=== PATIENT | male | born 1940 | race American Indian/Alaskan Native ===

== ENCOUNTER 2020-10-03 07:26 | Emergency (ER) | payer MEDICARE ==
--- NOTE | 2020-10-03 07:50 | Emergency Department Report ---
ED General Adult HPI - General Chief complaint: Abdominal Pain Stated complaint: ABD PAIN PUI?: No Time Seen by Provider: 10/03/20 07:40 Source: patient, RN notes reviewed Mode of arrival: Wheelchair Limitations: Physical Limitation - History of Present Illness Initial comments: The patient was evaluated in the emergency department for symptoms described in the history of present illness. He/she was evaluated in the context of the global COVID-19 pandemic, which necessitated consideration that the patient might be at risk for infection with the virus that causes COVID-19. Institutional protocols and algorithms that pertain to the evaluation of patients at risk for COVID-19 are in a state of rapid change based on inform ation released by regulatory bodies including the CDC and federal and state organizations. These policies and algorithms were followed during the patient's care in the emergency department. Please note that these policies, procedures and recommendations changed on a rapid basis. The patient is a 79-year-old gentleman. He is not known to myself previously. He just arrived in the [facility] yesterday, from [facility]. He does not have a local primary care doctor. His past medical history includes a distant history of urinary retention, obesity, and he presents to the ER today with a complaint of urinary retention. This started yesterday. He denies headache, neck pain, chest pain, abdominal pain (upper), testicular pain. He has suprapubic lower abdominal pain. He has no lower extremity weakness or numbness. He has no additional injuries or complaints. Urinary retention is constant, does not radiate anywhere, and does not have exacerbating or relieving factors. -: hour(s) Location: abdomen Quality: stabbing Consistency: constant Improves with: none Worsens with: none Associated Symptoms: denies other symptoms - Related Data Allergies Allergy/AdvReac Type Severity Reaction Status Date / Time No Known Allergies Allergy Unverified 10/03/20 07:33 ED Review of Systems ROS: Stated complaint: ABD PAIN Other details as noted in HPI Comment: All other systems reviewed and negative Gastrointestinal: abdominal pain Genitourinary: as per HPI, other (Suprapubic pain, urinary retention) ED Past Medical Hx - Past Medical History Previous Medical History?: Yes Hx Hypertension: Yes Hx Diabetes: Yes - Surgical History Past Surgical History?: Yes Additional Surgical History: spinal cord surgery - Social History Smoking Status: Never Smoker Substance Use Type: None ED Physical Exam - General Limitations: No Limitations General appearance: alert, anxious, in distress, obese - Head Head exam: Present: atraumatic, normocephalic - Eye Eye exam: Present: normal appearance, EOMI. Absent: nystagmus - ENT ENT exam: Present: normal exam, normal orophraynx, mucous membranes moist, normal external ear exam - Neck Neck exam: Present: normal inspection, full ROM. Absent: tenderness, meningismus - Respiratory Respiratory exam: Present: normal lung sounds bilaterally. Absent: respiratory distress, wheezes, rales, rhonchi, stridor, decreased breath sounds - Cardiovascular Cardiovascular Exam: Present: regular rate, normal rhythm, normal heart sounds. Absent: bradycardia, tachycardia, irregular rhythm, systolic murmur, diastolic murmur, rubs, gallop - GI/Abdominal GI/Abdominal exam: Present: soft, normal bowel sounds. Absent: distended, tenderness, guarding, rebound, rigid, pulsatile mass - Rectal Rectal exam: Present: deferred - exam: Present: normal inspection, other (There is no testicular tenderness. There is normal testicular lie bilaterally. The patient is circumcised. Chaperoned by nurse Lore Mayo) External exam: Present: normal external exam - Extremities Exam Extremities exam: Present: normal inspection, full ROM, other (2+ pulses noted in the bilateral upper and lower extremities. There is no palpable cord. negative Homans sign. Muscular compartments are soft. The pelvis is stable.). Absent: pedal edema, calf tenderness - Back Exam Back exam: Present: normal inspection. Absent: tenderness, CVA tenderness (R), CVA tenderness (L), paraspinal tenderness, vertebral tenderness - Neurological Exam Neurological exam: Present: alert, other (No facial droop. Tongue midline. Extraocular movements intact bilaterally. Facial sensation intact to light touch in V1, V2, V3 distribution bilaterally. 5 and a 5 strength in 4 extremities. Sensation intact to light touch in 4 extremities.) - Psychiatric Psychiatric exam: Present: anxious - Skin Skin exam: Present: warm, dry, intact, normal color. Absent: rash ED Course Vital Signs 10/03/20 10/03/20 10/03/20 07:33 08:26 08:35 Temperature 97.5 F L Pulse Rate 72 63 Respiratory 18 20 20 Rate Blood Pressure 157/69 Blood Pressure 132/70 [Right] O2 Sat by Pulse 98 98 96 Oximetry - Reevaluation(s) Reevaluation #1: 10/03/20 09:04 Differential diagnosis, including but not limited to: BPH, prostate cancer, ur inary retention, cystitis, electrolyte derangement, renal insufficiency Assessment and plan: 79-year-old gentleman with urinary retention. He has no other injuries or complaints at this time. He is afebrile with reassuring vital signs with an unremarkable physical examination. Nursing team attempted to place 16 Luxembourger Barajas catheter, unsuccessful. Using typical sterile technique, I attempted placement of a 16 Luxembourger, 14 Luxembourger coud catheter, and was unsuccessful. In addition, we are unsuccessful in attempting a straight catheterization on this patient. Multiple nurses attempted to catheterize this patient, and were unsuccessful. I do not have urology available for ER consultation. Patient voided 50 cc, however, bladder scanner showed 463 cc. Patient requires urologic consultation for placement of a Barajas catheter. Laboratory studies ordered. I have counseled patient regarding need for transfer for definitive care. He is amenable to this plan of care. He is hemodynamically stable, protecting his airway, and medically suitable for transportation. Contacted [facility] transfer center, discussed care/history/physical with Dr. Perez, at [facility], he requests call back once laboratory studies have resulted. We do not suspect Covid at this time. 10/03/20 10:24 Laboratory studies reviewed and appreciated. We discussed with the aforementioned neurologist. He will communicate to his colleague, Dr. Houser. Patient will be transferred ER to ER, to [facility], accepting physician is Dr. Longo ED Medical Decision Making - Lab Data Result diagrams: 10/03/20 08:35 10/03/20 08:35 Vital Signs 10/03/20 10/03/20 10/03/20 07:33 08:26 08:35 Temperature 97.5 F L Pulse Rate 72 63 Respiratory 18 20 20 Rate Blood Pressure 157/69 Blood Pressure 132/70 [Right] O2 Sat by Pulse 98 98 96 Oximetry Lab Results 10/03/20 Range/Units 08:35 WBC 4.7 (4.5-11.0) K/mm3 RBC 6.18 H (3.65-5.03) M/mm3 Hgb 17.6 H (11.8-15.2) gm/dl Hct 53.2 H (35.5-45.6) % MCV 86 (84-94) fl MCH 29 (28-32) pg MCHC 33 (32-34) % RDW 15.0 (13.2-15.2) % Plt Count 75 L (140-440) K/mm3 Lab Results 10/03/20 10/03/20 10/03/20 Range/Units 08:35 08:35 08:59 WBC 4.7 (4.5-11.0) K/mm3 RBC 6.18 H (3.65-5.03) M/mm3 Hgb 17.6 H (11.8-15.2) gm/dl Hct 53.2 H (35.5-45.6) % MCV 86 (84-94) fl MCH 29 (28-32) pg MCHC 33 (32-34) % RDW 15.0 (13.2-15.2) % Plt Count 75 L (140-440) K/mm3 Sodium 142 (137-145) mmol/L Potassium 3.5 L (3.6-5.0) mmol/L Chloride 106.7 (98-107) mmol/L Carbon Dioxide 24 (22-30) mmol/L Anion Gap 15 mmol/L BUN 18 (9-20) mg/dL Creatinine 0.9 (0.8-1.3) mg/dL Estimated GFR > 60 ml/min BUN/Creatinine Ratio 20 % Glucose 187 H (75-100) mg/dL Calcium 10.1 (8.4-10.2) mg/dL Magnesium 2.20 (1.7-2.3) mg/dL Total Creatine Kinase 264 H (55-170) units/L Urine Bilirubin Neg (Negative) Urine RBC (Auto) 23.0 (0.0-6.0) /HPF U Epithel Cells (Auto) < 1.0 (0-13.0) /HPF Critical care attestation.: If time is entered above; I have spent that time in minutes in the direct care of this critically ill patient, excluding procedure time. ED Disposition Clinical Impression: Urinary retention Disposition: DC/TX-02 SHRT-TRM GEN HOSP IP Is pt being admited?: No Does the pt Need Aspirin: No Condition: Good Referrals: MYRON SON MD [Other] - 3-5 Days
[2020-10-03] MEDS ORDERED: fentaNYL 100 MCG/2 ML INJ ONE (08:18)
[2020-10-03] MEDS ORDERED: fentaNYL 100 MCG/2 ML INJ IV ONE (08:38)
[2020-10-03 08:52] LABS: Hematocrit 53.2 % (35.5-45.6); Hemoglobin 17.6 gm/dl (11.8-15.2); Mean Corpuscular HGB Conc 33 % (32-34); Mean Corpuscular Volume 86 fl (84-94); Red Blood Count 6.18 M/mm3 (3.65-5.03)
[2020-10-03 08:55] LABS: Platelet Count 75 K/mm3 (140-440)
[2020-10-03 09:18] LABS: BUN/Creatinine Ratio 20; Blood Urea Nitrogen 18 mg/dL (9-20); Calcium 10.1 mg/dL (8.4-10.2); Hemolysis Index 5
[2020-10-03 10:07] LABS: Bilirubin,Urine NEG (Negative); Blood,Urine MOD (Negative); Color,Urine Yellow (Yellow); Mucus,Urine FEW /HPF; Urobilinogen,Urine < 2.0 mg/dL (<2.0)
[2020-10-03 10:13] LABS: WBC,Urine > 182.0 /HPF (0.0-6.0)
[2020-10-03 10:54] VITALS: BP 160/71
== END 2020-10-03 11:22 | disposition short-term general hospital (02) ==
LOC: ED 07:26
DX: R33.9 Retention of urine, unspecified (principal); R10.30 Lower abdominal pain, unspecified; I10 Essential (primary) hypertension; E11.9 Type 2 diabetes mellitus without complications; Z98.890 Other specified postprocedural states
CPT/HCPCS: 36415; 80048; 81001; 82550; 83735; 85027; 87086; 96374; 99285; J3010

== ENCOUNTER 2020-11-10 00:38 | Inpatient (IN) | payer MEDICARE ==
[2020-11-10] MEDS ORDERED: ATROPINE 0.1% (1 MG/10 ML) CARDIAC SYRINGE ONE ×2 (00:46→05:28)
--- NOTE | 2020-11-10 00:49 | Emergency Department Report ---
ED Shortness of Breath HPI - General Chief Complaint: Dyspnea/Respdistress Stated Complaint: TRISTAN Time Seen by Provider: 11/10/20 00:38 Source: patient, EMS Mode of arrival: Stretcher Limitations: No Limitations - History of Present Illness Initial Comments: Patient is a 79-year-old male who presents emergency room complaints of dyspnea on exertion and shortness of breath. Patient states his shortness of breath exertion started 3 days ago. Patient states shortness of breath and pain exertion only when he is walking. Patient states his job is better with rest and worse with exertion. Patient denies chest pain. Patient denies fever or chills. Patient denies cough. Patient brought in by EMS. EMS did an EKG prior to arrival and it shows a thi rd-degree AV block with complete disassociation. Patient is not hypoxic. Patient not hypotensive. Patient denied any other symptoms. Patient denies any pain. Patient denies recent travel. Patient denies recent international travel. Patient denies exposure to the novel coronavirus. Patient denies sick contacts. Patient denies fever and chills. Patient denies cough. Patient denies diarrh ea. Patient denies coming in contact with anybody with symptoms of the novel coronavirus. MD Complaint: shortness of breath -: Sudden Severity: moderate Consistency: intermittent Improves With: rest Worsens With: exertion Associated Symptoms: denies other symptoms Treatments Prior to Arrival: oxygen - Related Data Home Oxygen Therapy: No Home Medications Medication Instructions Recorded Confirmed Last Taken Cyanocobalamin (Vitamin B-12) 5,000 mcg PO QDAY 11/10/20 11/10/20 Unknown [Vitamin B12] Docusate Sodium [Docusil] 100 mg PO BID 11/10/20 11/10/20 Unknown HYDROcodone/APAP 5-325 [[place] 1 each PO QDAY 11/10/20 11/10/20 Unknown 5/325] Losartan [Cozaar] 25 mg PO QDAY 11/10/20 11/10/20 Unknown Lovastatin [Altoprev] 20 mg PO QHS 11/10/20 11/10/20 Unknown Meloxicam [Mobic] 15 mg PO QDAY 11/10/20 11/10/20 Unknown Omeprazole 20 mg PO QDAY 11/10/20 11/10/20 Unknown Pioglitazone [Actos] 15 mg PO QDAY 11/10/20 11/10/20 Unknown Tamsulosin [Flomax] 0.4 mg PO QDAY 11/10/20 11/10/20 Unknown amLODIPine [Norvasc] 10 mg PO DAILY 11/10/20 11/10/20 Unknown cefUROXime [Ceftin] 500 mg PO BID 11/10/20 11/10/20 Unknown glipiZIDE [Glucotrol] 10 mg PO QDAY 11/10/20 11/10/20 Unknown metFORMIN [Glucophage] 500 mg PO BID 11/10/20 11/10/20 Unknown Allergies Allergy/AdvReac Type Severity Reaction Status Date / Time No Known Allergies Allergy Verified 11/10/20 01:27 ED Review of Systems ROS: Stated complaint: TRISTAN Other details as noted in HPI Constitutional: denies: chills, fever Eyes: denies: eye pain, eye discharge, vision change ENT: denies: ear pain, throat pain Respiratory: shortness of breath, SOB with exertion. denies: cough, wheezing Cardiovascular: dyspnea on exertion. denies: chest pain, palpitations Endocrine: no symptoms reported Gastrointestinal: denies: abdominal pain, nausea, diarrhea Genitourinary: denies: urgency, dysuria Musculoskeletal: denies: back pain, joint swelling, arthralgia Skin: denies: rash, lesions Neurological: denies: headache, weakness, paresthesias Psychiatric: denies: anxiety, depression Hematological/Lymphatic: denies: easy bleeding, easy bruising ED Past Medical Hx - Past Medical History Previous Medical History?: Yes Hx Hypertension: Yes Hx Diabetes: Yes Additional medical history: Urinary Retention, Enlarged Prostate - Surgical History Past Surgical History?: Yes Additional Surgical History: spinal cord surgery - Family History Family history: no significant - Social History Smoking Status: Never Smoker Substance Use Type: None - Medications Home Medications: Home Medications Medication Instructions Recorded Confirmed Last Taken Type Cyanocobalamin (Vitamin B-12) 5,000 mcg PO QDAY 11/10/20 11/10/20 Unknown History [Vitamin B12] Docusate Sodium [Docusil] 100 mg PO BID 11/10/20 11/10/20 Unknown History HYDROcodone/APAP 5-325 [[place] 1 each PO QDAY 11/10/20 11/10/20 Unknown History 5/325] Losartan [Cozaar] 25 mg PO QDAY 11/10/20 11/10/20 Unknown History Lovastatin [Altoprev] 20 mg PO QHS 11/10/20 11/10/20 Unknown History Meloxicam [Mobic] 15 mg PO QDAY 11/10/20 11/10/20 Unknown History Omeprazole 20 mg PO QDAY 11/10/20 11/10/20 Unknown History Pioglitazone [Actos] 15 mg PO QDAY 11/10/20 11/10/20 Unknown History Tamsulosin [Flomax] 0.4 mg PO QDAY 11/10/20 11/10/20 Unknown History amLODIPine [Norvasc] 10 mg PO DAILY 11/10/20 11/10/20 Unknown History cefUROXime [Ceftin] 500 mg PO BID 11/10/20 11/10/20 Unknown History glipiZIDE [Glucotrol] 10 mg PO QDAY 11/10/20 11/10/20 Unknown History metFORMIN [Glucophage] 500 mg PO BID 11/10/20 11/10/20 Unknown History ED Physical Exam - General Limitations: No Limitations General appearance: alert, in no apparent distress - Head Head exam: Present: atraumatic, normocephalic - Eye Eye exam: Present: normal appearance - ENT ENT exam: Present: mucous membranes moist - Neck Neck exam: Present: normal inspection - Respiratory Respiratory exam: Present: normal lung sounds bilaterally. Absent: respiratory distress - Cardiovascular Cardiovascular Exam: Present: regular rate, normal rhythm. Absent: systolic murmur, diastolic murmur, rubs, gallop - GI/Abdominal GI/Abdominal exam: Present: soft, normal bowel sounds - Rectal Rectal exam: Present: deferred - Extremities Exam Extremities exam: Present: normal inspection - Back Exam Back exam: Present: normal inspection - Neurological Exam Neurological exam: Present: alert, oriented X3 - Psychiatric Psychiatric exam: Present: normal affect, normal mood - Skin Skin exam: Present: warm, dry, intact, normal color. Absent: rash ED Course Vital Signs 11/10/20 11/10/20 11/10/20 00:40 00:42 00:46 Temperature Pulse Rate 32 L 34 L 35 L Respiratory 16 14 13 Rate Blood Pressure 209/70 Blood Pressure 209/70 [Right] O2 Sat by Pulse 99 100 98 Oximetry 11/10/20 11/10/20 11/10/20 00:49 00:51 00:52 Temperature 97.8 F Pulse Rate 33 L Respiratory 17 Rate Blood Pressure Blood Pressure [Right] O2 Sat by Pulse 3 L Oximetry 11/10/20 11/10/20 11/10/20 01:00 01:17 01:31 Temperature Pulse Rate 34 L 33 L 33 L Respiratory 14 17 17 Rate Blood Pressure 211/57 213/63 174/64 Blood Pressure [Right] O2 Sat by Pulse 100 100 100 Oximetry 11/10/20 11/10/20 11/10/20 01:45 02:01 02:15 Temperature Pulse Rate 32 L 32 L 31 L Respiratory 16 12 13 Rate Blood Pressure 174/64 178/62 178/62 Blood Pressure [Right] O2 Sat by Pulse 100 Oximetry 11/10/20 02:31 Temperature Pulse Rate 29 L Respiratory 18 Rate Blood Pressure 180/63 Blood Pressure [Right] O2 Sat by Pulse 100 Oximetry - Reevaluation(s) Reevaluation #1: We attempted the patient placed on a pacer and it was too uncomfortable and did not capture well. Patient was then given atropine and no response. I will discussed this with cardiology. 11/10/20 00:50 Reevaluation #2: I discussed all results with patient. I discussed plan of care with patient. Patient agrees with plan of care and admission. Patient to be admitted to the hospitalist service. 11/10/20 01:55 - Consultations Consultation #1: I discussed the case with Dr. Kayden Acosta, cardiology. Recommend that he recommends admission, labs and he will, and place a temporary venous pacer in the morning. 11/10/20 01:01 Consultation #2: Hospitalist consulted for admission. Hospitalist to admit patient. 11/10/20 01:55 ED Medical Decision Making - Lab Data Result diagrams: 11/10/20 01:01 11/10/20 01:01 - EKG Data -: EKG Interpreted by Me EKG shows normal: sinus rhythm, ST-T waves Rate: bradycardia - EKG Data Interpretation: other (Right bundle branch block, widened QRS, complete AV block.) - Radiology Data Radiology results: report reviewed, image reviewed interpreted by me: Chest x-ray: No pneumonia, no pneumothorax, no foreign body, no osseous findings, no acute findings - Medical Decision Making Patient is a 79-year-old male that presents emergency room with complaints of shortness of breath and dyspnea exertion. Patient was found to be severely bradycardic. On initial EKG and on EKG of EMS, the patient was found to have a complete heart block. Early in the ER stay, I discussed the case with cardiology. Cardiology recommendations were received. Prior to discussing the case with cardiology, the patient was given atropine and an external pacer was applied. Atropine did not increase the heart rate. The pacemaker was not tolerable and did not adjust the heart rate at all. Patient had labs which were essentially unremarkable. Patient chest x-ray is negative for acute findings. Patient admitted to the ICU and to the hospitalist service for further evaluation treatment. - Differential Diagnosis Complete AV block, bradycardia, electrolyte imbalance, ACS Critical Care Time: Yes Critical care time in (mins) excluding proc time.: 35 Critical care attestation.: If time is entered above; I have spent that time in minutes in the direct care of this critically ill patient, excluding procedure time. Critical Care Time: 35 MINUTES ED Disposition Clinical Impression: Complete heart block, RICCI (dyspnea on exertion), SOB (shortness of breath), Bradycardia Disposition: 09 OP ADMIT IP TO THIS HOSP Is pt being admited?: Yes Does the pt Need Aspirin: No Condition: Critical Time of Disposition: 02:01
[2020-11-10] MEDS ORDERED: ATROPINE 1 MG/ML VIAL IV ONE (00:53)
--- NOTE | 2020-11-10 01:44 | XRay Report ---
CHEST 1 VIEW INDICATION / CLINICAL INFORMATION: Dyspnea. COMPARISON: None available. FINDINGS: SUPPORT DEVICES: None. HEART / MEDIASTINUM: No significant abnormality. LUNGS / PLEURA: Diffuse bilateral interstitial opacities are present. No pneumothorax. ADDITIONAL FINDINGS: No significant additional findings. IMPRESSION: 1. Diffuse bilateral interstitial pulmonary opacities are present. I would favor bilateral pneumonia, but interstitial pulmonary edema could also have this appearance and clinical correlation is recomme nded. Signer Name: Kassi Sanchez MD Signed: 11/10/2020 1:39 AM Workstation Name: [id number]
[2020-11-10 01:54] LABS: Basophils % (Auto) 0.5 % (0.0-1.8); Eosinophils # (Auto) 0.3 K/mm3 (0.0-0.4); Eosinophils % (Auto) 6.7 % (0.0-4.3); Hematocrit 38.4 % (35.5-45.6); Hemoglobin 12.3 gm/dl (11.8-15.2); Lymphocytes # (Auto) 1.6 K/mm3 (1.2-5.4); Lymphocytes % (Auto) 38.6 % (13.4-35.0); Mean Corpuscular HGB Conc 32 % (32-34); Mean Corpuscular Volume 88 fl (84-94); Monocytes # (Auto) 0.5 K/mm3 (0.0-0.8); Monocytes % (Auto) 10.9 % (0.0-7.3); Platelet Count 114 K/mm3 (140-440); Red Blood Count 4.38 M/mm3 (3.65-5.03); Red Cell Distribution Width 15.9 % (13.2-15.2)
[2020-11-10 01:59] LABS: Creatine Kinase MB 1.7 ng/mL (0.0-4.0)
[2020-11-10 02:00] LABS: Alanine Aminotransferase 59 units/L (7-56); Albumin 3.7 g/dL (3.9-5); BUN/Creatinine Ratio 15; Blood Urea Nitrogen 17 mg/dL (9-20); Calcium 10.1 mg/dL (8.4-10.2); Hemolysis Index 5
[2020-11-10] MEDS ORDERED: hydrALAZINE 20 MG/1 ML INJ IV PRN (02:29)
--- NOTE | 2020-11-10 02:30 | History and Physical Report ---
History of Present Illness Date of examination: 11/10/20 Date of admission: 11/10/20 Chief complaint: shortness of breath History of present illness: Patient is a 79-year-old male who presents emergency room with complaints of dyspnea on exertion and shortness of breath. Patient states his shortness of breath exertion started 3 days ago. Patient states shortness of breath and pain exertion only when he is walking. Patient states his symptom worse with exertion and better with rest. Patient Patient is seen at bedside. Patient is calm, he denies chest pain, nausea and vomiting. patient also denies fever, cough or chill. Discussed plan of care with the patient nurse at bedside. Patient nurse said he gave patient atropine at bedside but did not improve the heart rate. External pacemaker was placed, however patient did not tolerate the procedure in ED Patient is scheduled for pacemaker placement in the morning by automatic embroidery machine tender. Reviewed lab, MAR and vital signs. ED work-up shows WBC 4.2, hemoglobin 12.3, platelets 114, sodium level 145 Potassium level 4.0, serum glucose 147, creatinine 1.21. Reviewed child monitor patient is on complete heart block at rate 20s to 30s Patient is CAlM and not in acute distress even with low heart rate. Chest x-ray done which showed diffuse bilateral pulmonary opacity most likely abdominal bilateral pneumonia/pulmonary edema Past History Past Medical History: diabetes, hypertension, hyperlipidemia Past Surgical History: Other (History of spinal surgery) Social history: no significant social history, lives with family. denies: smoking, alcohol abuse, prescription drug abuse Family history: diabetes (Mother with heart attack), hypertension Medications and Allergies Allergies Allergy/AdvReac Type Severity Reaction Status Date / Time No Known Allergies Allergy Verified 11/10/20 01:27 Home Medications Medication Instructions Recorded Confirmed Last Taken Type Cyanocobalamin (Vitamin B-12) 5,000 mcg PO QDAY 11/10/20 11/10/20 Unknown History [Vitamin B12] Docusate Sodium [Docusil] 100 mg PO BID 11/10/20 11/10/20 Unknown History HYDROcodone/APAP 5-325 [[place] 1 each PO QDAY 11/10/20 11/10/20 Unknown History 5/325] Losartan [Cozaar] 25 mg PO QDAY 11/10/20 11/10/20 Unknown History Lovastatin [Altoprev] 20 mg PO QHS 11/10/20 11/10/20 Unknown History Meloxicam [Mobic] 15 mg PO QDAY 11/10/20 11/10/20 Unknown History Omeprazole 20 mg PO QDAY 11/10/20 11/10/20 Unknown History Pioglitazone [Actos] 15 mg PO QDAY 11/10/20 11/10/20 Unknown History Tamsulosin [Flomax] 0.4 mg PO QDAY 11/10/20 11/10/20 Unknown History amLODIPine [Norvasc] 10 mg PO DAILY 11/10/20 11/10/20 Unknown History cefUROXime [Ceftin] 500 mg PO BID 11/10/20 11/10/20 Unknown History glipiZIDE [Glucotrol] 10 mg PO QDAY 11/10/20 11/10/20 Unknown History metFORMIN [Glucophage] 500 mg PO BID 11/10/20 11/10/20 Unknown History Review of Systems Constitutional: fatigue, weakness Ears, nose, mouth and throat: no epistaxis, no bleeding gums Cardiovascular: lightheadedness, shortness of breath, high blood pressure, decreased exercise tolerance Respiratory: shortness of breath Gastrointestinal: no abdominal pain, no melena Genitourinary Male: no dysuria Rectal: no hemorrhoids Musculoskeletal: muscle weakness Integumentary: no rash, no pruritis Neurological: no head injury Psychiatric: no suicidal ideation, no disorientation Endocrine: no polyuria Hematologic/Lymphatic: no easy bruising Allergic/Immunologic: no urticaria Exam - Constitutional Vitals: Temp Pulse Resp BP Pulse Ox 97.8 F 32 L 12 178/62 100 11/10/20 00:52 11/10/20 02:01 11/10/20 02:01 11/10/20 02:01 11/10/20 02:01 General appearance: Present: mild distress, obese - EENT Eyes: Present: PERRL ENT: hearing intact, clear oral mucosa - Neck Neck: Present: supple, normal ROM - Respiratory Respiratory effort: normal Respiratory: bilateral: CTA - Cardiovascular Heart rate: 30 Heart Sounds: Present: S1 & S2. Absent: rub, click - Extremities Extremities: pulses symmetrical, No edema Peripheral Pulses: within normal limits - Abdominal General gastrointestinal: Present: soft, non-tender, non-distended, normal bowel sounds Male genitourinary: Present: normal - Integumentary Integumentary: Present: clear, warm, dry - Musculoskeletal Musculoskeletal: strength equal bilaterally, generalized weakness - Psychiatric Psychiatric: appropriate mood/affect, intact judgment & insight, cooperative - Neurologic Neurologic: CNII-XII intact, moves all extremities - Allied Health Allied health notes reviewed: nursing HEART Score - HEART Score Troponin: Troponin T < 0.010 ng/mL (0.00-0.029) 11/10/20 01:01 Results - Labs CBC & Chem 7: 11/10/20 01:01 11/10/20 01:01 Labs: Abnormal lab results 11/10/20 11/10/20 Range/Units 01:01 01:01 WBC 4.2 L (4.5-11.0) K/mm3 RDW 15.9 H (13.2-15.2) % Plt Count 114 L (140-440) K/mm3 Lymph % (Auto) 38.6 H (13.4-35.0) % [place]da % (Auto) 10.9 H (0.0-7.3) % Eos % (Auto) 6.7 H (0.0-4.3) % Chloride 108.6 H (98-107) mmol/L Glucose 147 H (75-100) mg/dL AST 50 H (5-40) units/L ALT 59 H (7-56) units/L Albumin 3.7 L (3.9-5) g/dL Assessment and Plan - Patient Problems (1) Bradycardia Current Visit: Yes Status: Acute Plan to address problem: Continue to monitor patient vital signs including heart rate Atropine was given in ED patient still has low heart rate in the 20s to 30s Human Resources Communications Manager consulted pacemaker placement planned for morning Patient is stable not in acute distress (2) Complete heart block Current Visit: Yes Status: Acute Plan to address problem: Patient on case monitor has complete heart block He has shortness of breath only with activity No acute distress at rest Human Resources Communications Manager consulted (3) SOB (shortness of breath) Current Visit: Yes Status: Acute Plan to address problem: Continue oxygen supplement Monitor O2 sat and keep oxygen saturation greater than 90 As needed bronchodilator (4) Essential (primary) hypertension Current Visit: Yes Status: Acute Plan to address problem: Patient has a history of hypertension Monitor blood pressure continue home blood pressure medicine Will Adjust blood pressure medicine if needed ECHO-f/u with result (5) Person under investigation for COVID-19 Current Visit: Yes Status: Acute Plan to address problem: Patient has shortness of breath requiring oxygen Chest x-ray shows bilateral pulmonary opacity likely pneumonia/pulmonary edema We will order Covid test ID consult We will monitor inflammatory markers Ascorbic acid and zinc sulfate. (6) Bilateral pneumonia Current Visit: Yes Status: Acute Plan to address problem: Unknown cause Covid test ordered Blood culture and urinalysis Start azithromycin and Rocephin Check procalcitonin (7) DVT prophylaxis Current Visit: Yes Status: Acute Plan to address problem: Subcutaneous Lovenox post pace maker placement
[2020-11-10] MEDS ORDERED: ALUM-MAG HYDROXIDE-SIMETHICONE 200-200-20MG/5ML ORAL LIQD 30 ML PO PRN (02:45)
[2020-11-10] MEDS ORDERED: ONDANSETRON 4 MG/2 ML INJ IV PRN (02:45)
[2020-11-10] MEDS ORDERED: ACETAMINOPHEN 325 MG TAB PO PRN (02:45)
[2020-11-10] MEDS ORDERED: SENNOSIDES 8.6 MG TAB PO PRN (02:45)
[2020-11-10] MEDS ORDERED: METOCLOPRAMIDE 10 MG/2 ML INJ IV PRN (02:45)
[2020-11-10] MEDS ORDERED: ALBUTEROL 2.5 MG/3 ML NEBU IH PRN (02:45)
[2020-11-10] MEDS ORDERED: MAGNESIUM HYDROXIDE (MOM) ORAL LIQD UDC PO PRN (02:45)
[2020-11-10] MEDS ORDERED: traMADol 50 MG TAB PO PRN ×2 (02:49→09:30)
[2020-11-10] MEDS ORDERED: AZITHROMYCIN 500 MG in SODIUM CHLORIDE 0.9% 250ML 250 ML IV SCH (04:00)
[2020-11-10] MEDS ORDERED: cefTRIAXone/NS 1 GM/50 ML 1 GM/50 ML BAG IV SCH (04:00)
[2020-11-10] MEDS ORDERED: FUROSEMIDE 40 MG/4 ML INJ IV ONE (04:17)
[2020-11-10 05:39] LABS: C-Reactive Protein 0.5 mg/dL (0.00-1.30); Chol/HDL Ratio 4.14 %
[2020-11-10 05:58] LABS: Bilirubin,Urine NEG (Negative); Blood,Urine NEG (Negative); Color,Urine Yellow (Yellow); Mucus,Urine FEW /HPF; Protein,Urine <15 mg/dL mg/dL (Negative); Urobilinogen,Urine < 2.0 mg/dL (<2.0)
[2020-11-10] MEDS ORDERED: SODIUM CHLORIDE 0.9% 500 ML 500 ML ONE (07:37)
[2020-11-10] MEDS ORDERED: HEPARIN/NS 5000 UNIT/500ML 500 ML IR ONE (07:37)
[2020-11-10] MEDS ORDERED: SODIUM CHLORIDE 0.9% 500 ML 500 ML IV SCH (08:00)
[2020-11-10] MEDS ORDERED: VERAPAMIL 5 MG/2 ML INJ ONE (08:15)
[2020-11-10] MEDS ORDERED: HEPARIN/NS 5000 UNIT/500ML 1,000 ML IR ONE (08:27)
[2020-11-10] MEDS: LIDOCAINE (2%) 20 MG/1 ML VIAL 20 ML MDV INFILTRATI ONE ×4 (08:39→09:00)
[2020-11-10] MEDS: MIDAZOLAM 2 MG/2 ML INJ ONE ×3 (08:39→09:03)
[2020-11-10] MEDS: fentaNYL 100 MCG/2 ML INJ ONE ×3 (08:39→09:00)
[2020-11-10] MEDS: HEPARIN 10,000 UNITS/10 ML VIAL ONE ×3 (08:40→09:01)
[2020-11-10] MEDS: NITROGLYCERIN SYRINGE 3 ML ONE ×3 (08:42→09:01)
[2020-11-10] MEDS ORDERED: HYDROcodone/ACETAMINOPHEN 5-325 MG TAB PO PRN (09:30)
--- NOTE | 2020-11-10 09:36 | Consultation ---
History of Present Illness Consult date: 11/10/20 Requesting physician: CANDY HERNANDEZ Consult reason: bradycardia History of present illness: 79-year-old male with obesity hypertension hyperlipidemia diabetes for 3 days been having shortness of breath with exertion EMS arrived showed patient to be in complete heart block. Patient vitals were stable. Unresponsive to atropine. Patient is not on any AV porter blocking agents. Patient denies any chest pain. No syncope. Some lightheadedness. No fever no chills no cough. Patient had temporary pacemaker placed by the right common femoral vein. Left heart cath revealed patent coronaries with mild irregularities with normal LV function. Past History Past Medical History: diabetes, hypertension, hyperlipidemia Past Surgical History: Other (History of spinal surgery) Social history: no significant social history, lives with family. denies: smoking, alcohol abuse, prescription drug abuse Family history: diabetes (Mother with heart attack), hypertension Medications and Allergies Allergies Allergy/AdvReac Type Severity Reaction Status Date / Time No Known Allergies Allergy Verified 11/10/20 01:27 Home Medications Medication Instructions Recorded Confirmed Last Taken Type Cyanocobalamin (Vitamin B-12) 5,000 mcg PO QDAY 11/10/20 11/10/20 Unknown History [Vitamin B12] Docusate Sodium [Docusil] 100 mg PO BID 11/10/20 11/10/20 Unknown History HYDROcodone/APAP 5-325 [[place] 1 each PO QDAY 11/10/20 11/10/20 Unknown History 5/325] Losartan [Cozaar] 25 mg PO QDAY 11/10/20 11/10/20 Unknown History Lovastatin [Altoprev] 20 mg PO QHS 11/10/20 11/10/20 Unknown History Meloxicam [Mobic] 15 mg PO QDAY 11/10/20 11/10/20 Unknown History Omeprazole 20 mg PO QDAY 11/10/20 11/10/20 Unknown History Pioglitazone [Actos] 15 mg PO QDAY 11/10/20 11/10/20 Unknown History Tamsulosin [Flomax] 0.4 mg PO QDAY 11/10/20 11/10/20 Unknown History amLODIPine [Norvasc] 10 mg PO DAILY 11/10/20 11/10/20 Unknown History cefUROXime [Ceftin] 500 mg PO BID 11/10/20 11/10/20 Unknown History glipiZIDE [Glucotrol] 10 mg PO QDAY 11/10/20 11/10/20 Unknown History metFORMIN [Glucophage] 500 mg PO BID 11/10/20 11/10/20 Unknown History Active Meds: Active Medications Acetaminophen (Acetaminophen 325 Mg Tab) 650 mg PO Q6H PRN PRN Reason: Pain MILD(1-3)/Fever >100.5/[place] Hydrocodone Bitart/Acetaminophen (Hydrocodone/Acetaminophen 5-325 Mg Tab) 1 each PO Q4H PRN PRN Reason: Pain, Moderate (4-6) Al Hydrox/Mg Hydrox/Simethicone (Alum-Mag Hydroxide-Simethicone [id number]/5ml Oral Liqd 30 Ml) 30 ml PO Q4H PRN PRN Reason: Indigestion Albuterol (Albuterol 2.5 Mg/3 Ml Nebu) 2.5 mg IH Q3HRT PRN PRN Reason: Shortness Of Breath Amlodipine Besylate (Amlodipine 10 Mg Tab) 10 mg PO DAILY BUFFY Ascorbic Acid (Ascorbic Acid 500 Mg Tab) 500 mg PO BID BUFFY Atorvastatin Calcium (Atorvastatin 20 Mg Tab) 20 mg PO QHS [facility]Y Hydralazine HCl (Hydralazine 20 Mg/1 Ml Inj) 5 mg IV Q4H PRN PRN Reason: Hypertension Azithromycin 500 mg/ Sodium (Chloride) 250 mls @ 250 mls/hr IV Q24HR BUFFY; Protocol Last Admin: 11/10/20 04:15 Dose: 250 mls/hr Documented by: Ceftriaxone Sodium (Rocephin/Ns 1 Gm/50 Ml) 1 gm in 50 mls @ 100 mls/hr IV Q24HR BUFFY; Protocol Last Admin: 11/10/20 04:26 Dose: 100 mls/hr Documented by: Sodium Chloride (Nacl 0.9% 500 Ml) 500 mls @ 50 mls/hr IV DIRECT BUFFY Stop: 11/10/20 17:59 Insulin Human Lispro (Insulin Lispro 100 Unit/Ml Vial 3 Ml) 0 unit SUB-Q ACHS BUFFY; Protocol Losartan Potassium (Losartan 25 Mg Tab) 25 mg PO DAILY BUFFY Magnesium Hydroxide (Magnesium Hydroxide (Mom) Oral Liqd Udc) 30 ml PO Q4H PRN PRN Reason: Constipation Metoclopramide HCl (Metoclopramide 10 Mg/2 Ml Inj) 10 mg IV Q6H PRN PRN Reason: Nausea And Vomiting Ondansetron HCl (Ondansetron 4 Mg/2 Ml Inj) 4 mg IV Q8H PRN PRN Reason: Nausea And Vomiting Pantoprazole Sodium (Pantoprazole 20 Mg Tab) 20 mg PO QDAC [facility] Senna (Sennosides 8.6 Mg Tab) 8.6 mg PO BID PRN PRN Reason: Constipation Sodium Chloride (Sodium Chloride 0.9% 10 Ml Flush Syringe) 10 ml IV BID BUFFY Sodium Chloride (Sodium Chloride 0.9% 10 Ml Flush Syringe) 10 ml IV PRN PRN PRN Reason: LINE FLUSH Tamsulosin HCl (Tamsulosin 0.4 Mg Cap) 0.4 mg PO DAILY BUFFY Tramadol HCl (Tramadol 50 Mg Tab) 50 mg PO Q6H PRN PRN Reason: Pain, Moderate (4-6) Tramadol HCl (Tramadol 50 Mg Tab) 50 mg PO Q4H PRN PRN Reason: Pain, Mild (1-3) Zinc Sulfate (Zinc Sulfate 220 Mg Cap) 220 mg PO QDAY [facility] Review of Systems All systems: negative (hpi) Physical Examination Vital Signs Pulse Resp BP Pulse Ox 32 L 16 209/70 99 11/10/20 00:40 11/10/20 00:40 11/10/20 00:40 11/10/20 00:40 General appearance: no acute distress, well-nourished HEENT: Positive: PERRL, Mucus Membranes Moist Neck: Positive: neck supple, trachea midline Cardiac: Positive: Reg Rate and Rhythm, S1/S2. Negative: Audible Murmur Lungs: Positive: clear to auscultation, Normal Breath Sounds Neuro: Positive: Grossly Intact Abdomen: Positive: Soft, Active Bowel Sounds. Negative: Tender, Distended Male genitourinary: Positive: normal Skin: Positive: Clear Incision: Cardiac Cath Site Musculoskeletal: No Pain, Normal Range of Motion Extremities: Present: normal. Absent: edema Results 11/10/20 01:01 11/10/20 03:33 Cardiac Enzymes 11/10/20 11/10/20 Range/Units 01:01 03:33 AST 50 H (5-40) units/L Lactate Dehydrogenase 219 H (91-180) units/L CK-MB (CK-2) 1.7 (0.0-4.0) ng/mL Lipids 11/10/20 Range/Units 03:33 Triglycerides 70 (2-149) mg/dL Cholesterol 141 (50-199) mg/dL HDL Cholesterol 34 L (40-59) mg/dL Cholesterol/HDL Ratio 4.14 % CBC 11/10/20 Range/Units 01:01 WBC 4.2 L (4.5-11.0) K/mm3 RBC 4.38 (3.65-5.03) M/mm3 Hgb 12.3 (11.8-15.2) gm/dl Hct 38.4 (35.5-45.6) % Plt Count 114 L (140-440) K/mm3 Lymph # (Auto) 1.6 (1.2-5.4) K/mm3 [place] # (Auto) 0.5 (0.0-0.8) K/mm3 Eos # (Auto) 0.3 (0.0-0.4) K/mm3 Baso # (Auto) 0.0 (0.0-0.1) K/mm3 Comprehensive Metabolic Panel 11/10/20 11/10/20 Range/Units 01:01 03:33 Sodium 145 (137-145) mmol/L Potassium 4.0 (3.6-5.0) mmol/L Chloride 108.6 H (98-107) mmol/L Carbon Dioxide 26 (22-30) mmol/L BUN 17 (9-20) mg/dL Creatinine 1.1 (0.8-1.3) mg/dL Glucose 147 H 132 H (75-100) mg/dL Calcium 10.1 (8.4-10.2) mg/dL AST 50 H (5-40) units/L ALT 59 H (7-56) units/L Alkaline Phosphatase 47 (35-129) units/L Total Protein 6.8 (6.3-8.2) g/dL Albumin 3.7 L (3.9-5) g/dL - Imaging and Cardiology Cardiac cath: report reviewed (Left main patent LAD patent mildly Misbah circumflex patent mild Misbah's RCA moderate severe tortuosity patent mild Misbah is normal LV function) EKG interpretations - Telemetry EKG Rhythm: 3rd Degree HB (Complete heart block) Assessment and Plan 79-year-old patient with diastolic function complete heart block feeling better with a temporary pacemaker wire with patent coronaries normal LV function follow with echocardiogram blood pressure control hold Metformin. Repeat chest x-ray denies any fever or chills. Follow labs. Scheduled for permanent pacemaker on Wednesday - Patient Problems (1) Hypertension Current Visit: Yes Status: Chronic Qualifiers: Hypertension type: essential hypertension Qualified Code(s): I10 - Essential (primary) hypertension (2) Hyperlipidemia Current Visit: Yes Status: Chronic Qualifiers: Hyperlipidemia type: mixed hyperlipidemia Qualified Code(s): E78.2 - Mixed hyperlipidemia (3) Diabetes mellitus Current Visit: Yes Status: Chronic Qualifiers: Diabetes mellitus type: type 2 Diabetes mellitus penitentiary insulin use: with penitentiary use Diabetes mellitus complication status: without complication Qualified Code(s): E11.9 - Type 2 diabetes mellitus without complications; Z79.4 - manager terminal (current) use of insulin (4) 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
--- NOTE | 2020-11-10 10:03 | Cardiac Catherization Report ---
LEFT HEART CATHETERIZATION This is a 79-year-old male here for a left heart catheterization and temporary pacemaker done on 11/10/2020. CLINICAL INFORMATION: This is a 79-year-old -[place] gentleman with obesity, hypertension, hyperlipidemia, diabetes has been having shortness of breath for 3 days, found on EKG to be in complete heart block. Procedure was done with moderate sedation started at 9:01, finished at 9:21, which is 20 minutes of moderate sedation. PROCEDURE: Temporary pacemaker wire was done via the right common femoral vein, sterile technique, local anesthesia, 6-Croatian sheath inserted. The pacemaker wire was placed in the right ventricle. The patient achieved capture with settings rate of 60, output of 1, sensitivity 1. Next, a left heart catheterization done via the right radial artery, sterile technique, local anesthesia, 6-Croatian radial sheath inserted. There was moderate tortuosity in the subclavian, so left system engaged with JL3.5 catheter. Left main is a large caliber vessel, patent, bifurcates into medium caliber LAD is patent. There is moderate tortuosity. Diagonal 1 medium caliber, patent with mild luminal irregularities. Circumflex medium caliber vessel, patent with mild luminal irregularities with moderate tortuosity. OM1 and OM2 are medium caliber vessel, patent with mild luminal irregularities. RCA was engaged to a 3RDC. Subselectively it is a large dominant vessel with [id number] tortuosity, patent with mild luminal irregularities. PDA, PLV are patent. LV gram done in NIGERIAN and CARDENAS view shows normal LV function, EF 55-60%. LV was 140. LVEDP 14 mm. Aortic is 146/70. No gradient across the aortic valve on pullback. 5-Croatian catheters all taken over guidewire, 6-Croatian radial sheath was discontinued. Radial band applied. No hematoma, no bleeding. SUMMARY: 1. Left main patent, LAD patent, circumflex patent, RCA patent with [id number] tortuosity with mild luminal irregularities. Diagonal 1 medium caliber was patent. OM1 and OM2 medium caliber patent, normal LV function. 2. Temporary pacemaker wire placed in right common femoral vein. Settings of rate 60, sensitivity 1 and output of 1. The patient will be placed back to post-cath care and the patient will be arranged for a permanent pacemaker. JOB# [id number] BELEN/CANDELARIA
--- NOTE | 2020-11-10 13:55 | Consultation ---
History of Present Illness - Reason for Consult Consult date: 11/10/20 COVID PUI Requesting physician: MONICA LLAMAS - History of Present Illness The patient is a 79-year-old male with hypertension, diabetes, hyperlipidemia admitted to the hospital with worsening shortness of breath that began 3 days prior to coming in. Upon evaluation, normal WBC, chest x-ray showed bilateral pulmonary opacities. Patient has been made a COVID-19 PUI. He is otherwise afebrile. Infectious diseases was consulted for additional evaluation. D-dimer 01/07/2009, creatinine 1.1. UA showed pyuria. COVID-19 PCR is pending. Review of Systems: reviewed in the chart, unable to obtain, minimize risk of transmission Past History Past Medical History: diabetes, hypertension, hyperlipidemia Past Surgical History: Other (History of spinal surgery) Social history: no significant social history, lives with family. denies: smoking, alcohol abuse, prescription drug abuse Family history: diabetes (Mother with heart attack), hypertension Medications and Allergies Allergies Allergy/AdvReac Type Severity Reaction Status Date / Time No Known Allergies Allergy Verified 11/10/20 01:27 Home Medications Medication Instructions Recorded Confirmed Last Taken Type Cyanocobalamin (Vitamin B-12) 5,000 mcg PO QDAY 11/10/20 11/10/20 Unknown History [Vitamin B12] Docusate Sodium [Docusil] 100 mg PO BID 11/10/20 11/10/20 Unknown History HYDROcodone/APAP 5-325 [[place] 1 each PO QDAY 11/10/20 11/10/20 Unknown History 5/325] Losartan [Cozaar] 25 mg PO QDAY 11/10/20 11/10/20 Unknown History Lovastatin [Altoprev] 20 mg PO QHS 11/10/20 11/10/20 Unknown History Meloxicam [Mobic] 15 mg PO QDAY 11/10/20 11/10/20 Unknown History Omeprazole 20 mg PO QDAY 11/10/20 11/10/20 Unknown History Pioglitazone [Actos] 15 mg PO QDAY 11/10/20 11/10/20 Unknown History Tamsulosin [Flomax] 0.4 mg PO QDAY 11/10/20 11/10/20 Unknown History amLODIPine [Norvasc] 10 mg PO DAILY 11/10/20 11/10/20 Unknown History cefUROXime [Ceftin] 500 mg PO BID 11/10/20 11/10/20 Unknown History glipiZIDE [Glucotrol] 10 mg PO QDAY 11/10/20 11/10/20 Unknown History metFORMIN [Glucophage] 500 mg PO BID 11/10/20 11/10/20 Unknown History Active Meds: Active Medications Acetaminophen (Acetaminophen 325 Mg Tab) 650 mg PO Q6H PRN PRN Reason: Pain MILD(1-3)/Fever >100.5/[place] Hydrocodone Bitart/Acetaminophen (Hydrocodone/Acetaminophen 5-325 Mg Tab) 1 each PO Q4H PRN PRN Reason: Pain, Moderate (4-6) Al Hydrox/Mg Hydrox/Simethicone (Alum-Mag Hydroxide-Simethicone [id number]/5ml Oral Liqd 30 Ml) 30 ml PO Q4H PRN PRN Reason: Indigestion Albuterol (Albuterol 2.5 Mg/3 Ml Nebu) 2.5 mg IH Q3HRT PRN PRN Reason: Shortness Of Breath Amlodipine Besylate (Amlodipine 10 Mg Tab) 10 mg PO DAILY [facility] Ascorbic Acid (Ascorbic Acid 500 Mg Tab) 500 mg PO BID [facility] Aspirin (Aspirin 325 Mg Tab) 325 mg PO QDAY [facility] Atorvastatin Calcium (Atorvastatin 20 Mg Tab) 20 mg PO QHS [facility] Hydralazine HCl (Hydralazine 20 Mg/1 Ml Inj) 5 mg IV Q4H PRN PRN Reason: Hypertension Azithromycin 500 mg/ Sodium (Chloride) 250 mls @ 250 mls/hr IV Q24HR [facility]; Protocol Last Admin: 11/10/20 04:15 Dose: 250 mls/hr Documented by: Ceftriaxone Sodium (Rocephin/Ns 1 Gm/50 Ml) 1 gm in 50 mls @ 100 mls/hr IV Q24HR [facility]; Protocol Last Admin: 11/10/20 04:26 Dose: 100 mls/hr Documented by: Sodium Chloride (Nacl 0.9% 500 Ml) 500 mls @ 50 mls/hr IV DIRECT [facility] Stop: 11/10/20 17:59 Insulin Human Lispro (Insulin Lispro 100 Unit/Ml Vial 3 Ml) 0 unit SUB-Q ACHS [facility]; Protocol Losartan Potassium (Losartan 25 Mg Tab) 25 mg PO DAILY [facility] Magnesium Hydroxide (Magnesium Hydroxide (Mom) Oral Liqd Udc) 30 ml PO Q4H PRN PRN Reason: Constipation Metoclopramide HCl (Metoclopramide 10 Mg/2 Ml Inj) 10 mg IV Q6H PRN PRN Reason: Nausea And Vomiting Ondansetron HCl (Ondansetron 4 Mg/2 Ml Inj) 4 mg IV Q8H PRN PRN Reason: Nausea And Vomiting Pantoprazole Sodium (Pantoprazole 20 Mg Tab) 20 mg PO QDAC [facility] Senna (Sennosides 8.6 Mg Tab) 8.6 mg PO BID PRN PRN Reason: Constipation Sodium Chloride (Sodium Chloride 0.9% 10 Ml Flush Syringe) 10 ml IV BID BU[facility] Sodium Chloride (Sodium Chloride 0.9% 10 Ml Flush Syringe) 10 ml IV PRN PRN PRN Reason: LINE FLUSH Tamsulosin HCl (Tamsulosin 0.4 Mg Cap) 0.4 mg PO DAILY [facility] Tramadol HCl (Tramadol 50 Mg Tab) 50 mg PO Q4H PRN PRN Reason: Pain, Mild (1-3) Zinc Sulfate (Zinc Sulfate 220 Mg Cap) 220 mg PO QDAY [facility] Physical Examination - Physical Exam Narrative exam: Physical Exam (reviewed in chart to minimize risk of transmission) Constitutional: deferred Head, Ears, Nose: deferred Eyes: deferred Neck: deferred Oral: deferred Cardiovascular: deferred Respiratory: deferred GI: deferred Musculoskeletal: deferred Skin: deferred Hem/Lymphatic: deferred Psych: deferred Neurological: deferred - Constitutional Vitals: Vital Signs Temp Pulse Resp BP Pulse Ox 96.7 F L 58 L 20 103/68 94 11/10/20 11:26 11/10/20 12:25 11/10/20 12:25 11/10/20 12:25 11/10/20 12:25 Temperature -Last 24 Hours Temperature 96.7 F Temperature 97.8 F Results - Labs CBC & Chem 7: 11/10/20 01:01 11/10/20 11:53 Labs: Abnormal lab results 11/10/20 11/10/20 11/10/20 Range/Units 01:01 01:01 03:33 WBC 4.2 L (4.5-11.0) K/mm3 RDW 15.9 H (13.2-15.2) % Plt Count 114 L (140-440) K/mm3 Lymph % (Auto) 38.6 H (13.4-35.0) % [place] % (Auto) 10.9 H (0.0-7.3) % Eos % (Auto) 6.7 H (0.0-4.3) % D-Dimer (0-234) ng/mlDDU Chloride 108.6 H (98-107) mmol/L Glucose 147 H (75-100) mg/dL Hemoglobin A1c 8.4 H (4-6) % AST 50 H (5-40) units/L ALT 59 H (7-56) units/L Lactate Dehydrogenase (91-180) units/L Albumin 3.7 L (3.9-5) g/dL HDL Cholesterol (40-59) mg/dL Urine WBC (Auto) (0.0-6.0) /HPF 11/10/20 11/10/20 11/10/20 Range/Units 03:33 03:33 03:33 WBC (4.5-11.0) K/mm3 RDW (13.2-15.2) % Plt Count (140-440) K/mm3 Lymph % (Auto) (13.4-35.0) % [place] % (Auto) (0.0-7.3) % Eos % (Auto) (0.0-4.3) % D-Dimer 3909.89 H (0-234) ng/mlDDU Chloride (98-107) mmol/L Glucose 132 H (75-100) mg/dL Hemoglobin A1c (4-6) % AST (5-40) units/L ALT (7-56) units/L Lactate Dehydrogenase 219 H (91-180) units/L Albumin (3.9-5) g/dL HDL Cholesterol 34 L (40-59) mg/dL Urine WBC (Auto) (0.0-6.0) /HPF 11/10/20 11/10/20 Range/Units 04:36 11:53 WBC (4.5-11.0) K/mm3 RDW (13.2-15.2) % Plt Count (140-440) K/mm3 Lymph % (Auto) (13.4-35.0) % [place] % (Auto) (0.0-7.3) % Eos % (Auto) (0.0-4.3) % D-Dimer (0-234) ng/mlDDU Chloride (98-107) mmol/L Glucose 144 H (75-100) mg/dL Hemoglobin A1c (4-6) % AST (5-40) units/L ALT (7-56) units/L Lactate Dehydrogenase (91-180) units/L Albumin (3.9-5) g/dL HDL Cholesterol (40-59) mg/dL Urine WBC (Auto) 67.0 H (0.0-6.0) /HPF - Imaging and Cardiology Chest x-ray: report reviewed, image reviewed (diffuse b/l opacities) Assessment and Plan Cultures: SARS CoV2 PCR: Pending A/P: 79-year-old male with hypertension, diabetes, hyperlipidemia admitted to the hospital with worsening shortness of breath that began 3 days prior to coming in. Also has CHB and was awaiting PPM placement: #Bilateral pneumonia: BNP not high. CRP 0.5. Follow-up COVID-19 PCR #Acute hypoxic respiratory failure: On 2 L by nasal cannula #Transaminitis #Complete heart block: awaiting PPM. Recs: Continue empiric ceftriaxone, azithromycin Follow-up procalcitonin, stop abx if low Follow-up COVID-19 PCR, if positive, start remdesivir and steroids Heaven Hedrick MD, FACP [facility] ([facility] O: [phone] F: [phone]
[2020-11-10] MEDS: PANTOPRAZOLE 20 MG TAB PO SCH (14:13)
[2020-11-10] MEDS: INSULIN LISPRO 100 UNIT/ML VIAL 3 mL SUB-Q SCH ×3 (14:13→22:00)
--- NOTE | 2020-11-10 14:49 | XRay Report ---
CHEST 1 VIEW 11/10/2020 1:48 PM INDICATION / CLINICAL INFORMATION: s/p pacemaker. COMPARISON: 11/10/2020. FINDINGS: SUPPORT DEVICES: None. HEART / MEDIASTINUM: No significant abnormality. LUNGS / PLEURA: Near resolution of bilateral opacity. Mild underlying interstitial thickening is like ly chronic. No pneumothorax. ADDITIONAL FINDINGS: No significant additional findings. IMPRESSION: Resolution of bilateral opacity. This likely represented a combination of vascular conges tion/edema and atelectasis. Signer Name: Gen Elias MD Signed: 11/10/2020 2:45 PM Workstation Name: [id number]
[2020-11-10] MEDS: TAMSULOSIN 0.4 MG CAP PO SCH (15:53)
[2020-11-10] MEDS: amLODIPine 10 MG TAB PO SCH (15:53)
[2020-11-10] MEDS: LOSARTAN 25 MG TAB PO SCH (15:53)
[2020-11-10] MEDS: ZINC SULFATE 220 MG CAP PO SCH (15:53)
[2020-11-10] MEDS: ASPIRIN 325 MG TAB PO SCH (15:53)
[2020-11-10] MEDS: ASCORBIC ACID 500 MG TAB PO SCH ×2 (15:54→22:00)
--- NOTE | 2020-11-10 16:17 | Consultation ---
History of Present Illness Consult date: 11/10/20 Requesting physician: MONICA LLAMAS Reason for consult: other (Symptomatic Bradycardia; Complete Heart Block) History of present illness: PULMONARY/CCM CONSULT NOTE (Full dictation # [id number]) Please see dictated notes for full details Past History Past Medical History: diabetes, hypertension, hyperlipidemia Past Surgical History: Other (History of spinal surgery) Social history: no significant social history, lives with family. denies: smoking, alcohol abuse, prescription drug abuse Family history: diabetes (Mother with heart attack), hypertension Medications and Allergies Allergies Allergy/AdvReac Type Severity Reaction Status Date / Time No Known Allergies Allergy Verified 11/10/20 01:27 Home Medications Medication Instructions Recorded Confirmed Last Taken Type Cyanocobalamin (Vitamin B-12) 5,000 mcg PO QDAY 11/10/20 11/10/20 Unknown History [Vitamin B12] Docusate Sodium [Docusil] 100 mg PO BID 11/10/20 11/10/20 Unknown History HYDROcodone/APAP 5-325 [[place] 1 each PO QDAY 11/10/20 11/10/20 Unknown History 5/325] Losartan [Cozaar] 25 mg PO QDAY 11/10/20 11/10/20 Unknown History Lovastatin [Altoprev] 20 mg PO QHS 11/10/20 11/10/20 Unknown History Meloxicam [Mobic] 15 mg PO QDAY 11/10/20 11/10/20 Unknown History Pioglitazone [Actos] 15 mg PO QDAY 11/10/20 11/10/20 Unknown History RX: Omeprazole 20 mg PO QDAY 11/10/20 11/10/20 Unknown History Tamsulosin [Flomax] 0.4 mg PO QDAY 11/10/20 11/10/20 Unknown History amLODIPine [Norvasc] 10 mg PO DAILY 11/10/20 11/10/20 Unknown History cefUROXime [Ceftin] 500 mg PO BID 11/10/20 11/10/20 Unknown History glipiZIDE [Glucotrol] 10 mg PO QDAY 11/10/20 11/10/20 Unknown History metFORMIN [Glucophage] 500 mg PO BID 11/10/20 11/10/20 Unknown History Active Meds: Active Medications Acetaminophen (Acetaminophen 325 Mg Tab) 650 mg PO Q6H PRN PRN Reason: Pain MILD(1-3)/Fever >100.5/[place] Hydrocodone Bitart/Acetaminophen (Hydrocodone/Acetaminophen 5-325 Mg Tab) 1 each PO Q4H PRN PRN Reason: Pain, Moderate (4-6) Al Hydrox/Mg Hydrox/Simethicone (Alum-Mag Hydroxide-Simethicone 590-149-36ks/5ml Oral Liqd 30 Ml) 30 ml PO Q4H PRN PRN Reason: Indigestion Albuterol (Albuterol 2.5 Mg/3 Ml Nebu) 2.5 mg IH Q3HRT PRN PRN Reason: Shortness Of Breath Amlodipine Besylate (Amlodipine 10 Mg Tab) 10 mg PO DAILY [facility] Last Admin: 11/10/20 15:53 Dose: 10 mg Documented by: Ascorbic Acid (Ascorbic Acid 500 Mg Tab) 500 mg PO BID [facility] Last Admin: 11/10/20 15:54 Dose: 500 mg Documented by: Aspirin (Aspirin 325 Mg Tab) 325 mg PO QDAY [facility] Last Admin: 11/10/20 15:53 Dose: 325 mg Documented by: Atorvastatin Calcium (Atorvastatin 20 Mg Tab) 20 mg PO QHS [facility] Hydralazine HCl (Hydralazine 20 Mg/1 Ml Inj) 5 mg IV Q4H PRN PRN Reason: Hypertension Azithromycin 500 mg/ Sodium (Chloride) 250 mls @ 250 mls/hr IV Q24HR [facility]; Protocol Last Admin: 11/10/20 04:15 Dose: 250 mls/hr Documented by: Ceftriaxone Sodium (Rocephin/Ns 1 Gm/50 Ml) 1 gm in 50 mls @ 100 mls/hr IV Q24HR [facility]; Protocol Last Admin: 11/10/20 04:26 Dose: 100 mls/hr Documented by: Sodium Chloride (Nacl 0.9% 500 Ml) 500 mls @ 50 mls/hr IV DIRECT [facility] Stop: 11/10/20 17:59 Insulin Human Lispro (Insulin Lispro 100 Unit/Ml Vial 3 Ml) 0 unit SUB-Q ACHS [facility]Y; Protocol Last Admin: 11/10/20 14:13 Dose: Not Given Documented by: Losartan Potassium (Losartan 25 Mg Tab) 25 mg PO DAILY [facility] Last Admin: 11/10/20 15:53 Dose: 25 mg Documented by: Magnesium Hydroxide (Magnesium Hydroxide (Mom) Oral Liqd Udc) 30 ml PO Q4H PRN PRN Reason: Constipation Metoclopramide HCl (Metoclopramide 10 Mg/2 Ml Inj) 10 mg IV Q6H PRN PRN Reason: Nausea And Vomiting Ondansetron HCl (Ondansetron 4 Mg/2 Ml Inj) 4 mg IV Q8H PRN PRN Reason: Nausea And Vomiting Pantoprazole Sodium (Pantoprazole 20 Mg Tab) 20 mg PO QDAC [facility] Last Admin: 11/10/20 14:13 Dose: Not Given Documented by: Senna (Sennosides 8.6 Mg Tab) 8.6 mg PO BID PRN PRN Reason: Constipation Sodium Chloride (Sodium Chloride 0.9% 10 Ml Flush Syringe) 10 ml IV BID [facility] Last Admin: 11/10/20 15:53 Dose: 10 ml Documented by: Sodium Chloride (Sodium Chloride 0.9% 10 Ml Flush Syringe) 10 ml IV PRN PRN PRN Reason: LINE FLUSH Tamsulosin HCl (Tamsulosin 0.4 Mg Cap) 0.4 mg PO DAILY [facility] Last Admin: 11/10/20 15:53 Dose: 0.4 mg Documented by: Tramadol HCl (Tramadol 50 Mg Tab) 50 mg PO Q4H PRN PRN Reason: Pain, Mild (1-3) Zinc Sulfate (Zinc Sulfate 220 Mg Cap) 220 mg PO QDAY [facility] Last Admin: 11/10/20 15:53 Dose: 220 mg Documented by: Physical Examination Vital signs: Vital Signs Pulse Resp BP Pulse Ox 32 L 16 209/70 99 11/10/20 00:40 11/10/20 00:40 11/10/20 00:40 11/10/20 00:40 Results - Laboratory Findings CBC and BMP: 11/10/20 01:01 11/10/20 11:53 PT/INR, D-dimer D-Dimer 3909.89 ng/mlDDU (0-234) H 11/10/20 03:33 Abnormal lab findings: Abnormal Labs 11/10/20 11/10/20 11/10/20 01:01 01:01 03:33 WBC 4.2 L RDW 15.9 H Plt Count 114 L Lymph % (Auto) 38.6 H [place] % (Auto) 10.9 H Eos % (Auto) 6.7 H D-Dimer Chloride 108.6 H Glucose 147 H Hemoglobin A1c 8.4 H AST 50 H ALT 59 H Lactate Dehydrogenase Albumin 3.7 L HDL Cholesterol Urine WBC (Auto) 11/10/20 11/10/20 11/10/20 03:33 03:33 03:33 WBC RDW Plt Count Lymph % (Auto) [place] % (Auto) Eos % (Auto) D-Dimer 3909.89 H Chloride Glucose 132 H Hemoglobin A1c AST ALT Lactate Dehydrogenase 219 H Albumin HDL Cholesterol 34 L Urine WBC (Auto) 11/10/20 11/10/20 04:36 11:53 WBC RDW Plt Count Lymph % (Auto) [place] % (Auto) Eos % (Auto) D-Dimer Chloride Glucose 144 H Hemoglobin A1c AST ALT Lactate Dehydrogenase Albumin HDL Cholesterol Urine WBC (Auto) 67.0 H
--- NOTE | 2020-11-10 22:26 | Consultation ---
PULMONARY CRITICAL CARE CONSULTATION NOTE CONSULTING PHYSICIAN: Rosalina Landry NP REASON FOR CONSULTATION: Symptomatic bradycardia, complete heart block, person under investigation for COVID-19. CHIEF COMPLAINT AND HISTORY OF PRESENT ILLNESS: As follows: The patient is a 79-year-old male with past medical history significant amongst other things for a diagnosis of diabetes and hypertension. He is also obese, complaining of shortness of breath, dyspnea on exertion, had been going on for about 3 days. He denied any significant orthopnea, paroxysmal nocturnal dyspnea. He denied nausea and vomiting. Denied chest pain. Denied fevers or chills. Denied being in contact with anyone with known COVID-19 infection. Evaluation soon revealed that he was in complete heart block. External pacemaker with pacing was done. However, he did not tolerate it and the patient was taken into the labor relations director for placement of a temporary transvenous pacemaker. This morning, we were asked to assist with management. When I stopped by to see him, he was resting in bed. He remained on supplemental oxygen at 2 liters nasal cannula. Denied being on any home oxygen, was feeling a little bit better. When asked about a history of tobacco use/abuse, he gives a less than [id number] remote tobacco smoking history. That really is as much of the history of presentation as I have. He denies any new onset leg pain or swelling either unilaterally or bilaterally or any suggestion of deep venous thrombosis. PAST MEDICAL HISTORY: Diabetes, hypertension, hyperlipidemia, and obesity. PAST SURGICAL HISTORY: He has a history of spinal surgery. MEDICATIONS: He was on at the time I stopped by to see him were reviewed. Pertinent medications include the following: Tylenol 650 mg p.o. q. 6 hours p.r.n. mild pain or fevers, [place] 5/325 mg 1 tablet p.o. q. 4 hours p.r.n. moderate pain, albuterol 2.5 mg nebulized q.3 hours p.r.n. shortness of breath, amlodipine 10 mg p.o. daily, vitamin C 500 mg p.o. b.i.d., aspirin 325 mg p.o. daily, Lipitor 20 mg p.o. at bedtime, azithromycin 500 mg IV daily, Rocephin 1 gram IV daily, insulin via sliding scale, Cozaar 25 mg p.o. daily, Reglan 10 mg IV q.6 hours p.r.n. nausea and vomiting, Zofran 4 mg IV q. 8 hours p.r.n. nausea and vomiting, Protonix 20 mg p.o. daily, senna 8.6 mg p.o. b.i.d. p.r.n. constipation, tamsulosin 0.4 mg p.o. daily, zinc sulfate 220 mg p.o. daily. ALLERGIES: No known drug allergies. DIET: Obese gentleman. Denies acute weight loss or gain in the preceding few weeks to months. FAMILY AND SOCIAL HISTORY: Lives in the community, has a remote less than [id number] tobacco smoking history. Denies current tobacco, alcohol, or illicit drug use or abuse. There is a family history of diabetes and hypertension. REVIEW OF SYSTEMS: No loss of consciousness. No new onset seizures. No new onset focal weakness. He denies gross hematochezia or melena. Denies gross hematuria or dysuria. No hematemesis. No hemoptysis. He had the shortness of breath, dyspnea on exertion. He denies heat or cold intolerance. Denies polydipsia or polyuria. Complete 13-system review of systems obtained. Pertinent positives and/or negatives as in body of history above, otherwise they are noncontributory. PHYSICAL EXAMINATION: VITAL SIGNS: On examination at presentation, he was afebrile, temperature was 97.8 degrees Fahrenheit with a pulse of 32, respiratory rate of 16, blood pressure 209/70, O2 sats were 99%, inspired oxygen concentration at that time was not recorded. When I stopped by to see him, O2 sats were 98% on 2 liters nasal cannula. GENERAL: He is an elderly looking obese male. Normocephalic, atraumatic, resting in bed without significantly increased respiratory effort at rest. HEAD, EYES, EARS, NOSE AND THROAT: Anicteric. No conjunctival erythema. Oropharynx was moist. No gross jugular venous distention, no thyromegaly. He does have a large neck circumference. Grossly, there were no palpable lymph nodes in the supraclavicular or submandibular lymph node chains. LUNGS: Clear bilaterally, slightly diminished bilateral breath sounds, no wheezing. HEART: Heart sounds 1 and 2 are heard. They were regular in rate and rhythm at the time of my evaluation. Rate was around 57 without overt rubs or murmurs. ABDOMEN: Soft, full, protuberant. Bowel sounds are positive, nontender, soft, no palpable hepatosplenomegaly. EXTREMITIES: Without overt digital clubbing or cyanosis. No pedal edema. He has a temporary transvenous pacemaker with the insertion site in the right groin. NEUROLOGIC: Pupils are equal, round, about 4 mm, reactive to light. Extraocular muscle movements are intact. He moves all 4 extremities spontaneously. SKIN: Normal turgor in the areas examined without overt cellulitis or rash. Please see the wound care nurse's notes for full description of his skin. PSYCHIATRIC: Mood was normal. Affect was appropriate. LABORATORY DATA: From my review as follows: White cell count 4200, hemoglobin 12.3, hematocrit 38.4, platelet count 114. D-dimer was elevated at 3909. Serum sodium 145, potassium 4.0, chloride 109, bicarbonate 26, BUN 17, creatinine 1.1, glucose 132. Hemoglobin A1c was 8.4. AST was up at 50, ALT 59, otherwise liver function tests essentially within normal limits. Troponin within normal limits. CRP within normal limits. Procalcitonin within normal limits. Ferritin within normal limits. LDH slightly elevated at 219. Urinalysis showed large leukocyte esterase with 6-7 white cells per high power field. Coronavirus PCR initial test is negative. No microbiology studies. Chest x-ray was done. Unfortunately, I am unable to pull up the chest x-ray. I have reviewed the radiologist's interpretation, though he describes resolution of bilateral opacities, likely represented a combination of vascular congestion/edema and atelectasis. ASSESSMENT: 1. Acute hypoxemic respiratory failure, on supplemental oxygen. 2. Symptomatic bradycardia with complete heart block. 3. Morbid obesity. 4. Person under investigation for COVID-19 infection. 5. History of diabetes. 6. Hypertension. 7. Hyperlipidemia. 8. Shortness of breath/dyspnea on exertion. 9. Leukopenia. 10. Elevated D-dimer. 11. Thrombocytopenia. 12. Possible urinary tract infection. PLAN: I will defer to the Infectious Disease team for determining whether we will continue to coronavirus precautions or whether we are going to repeat the test. In the meantime, we will keep him in airborne and contact isolation. Oxygen will be weaned to keep sats greater than or equal to about 92%. Aspiration precautions will be maintained. He has a temporary pacemaker in place and he will soon be getting a permanent pacemaker. I will defer to the Cardiology team. We will continue empiric community-acquired pneumonia therapy. Rocephin should also cover for possible UTI. Electrolytes will be followed and corrected as necessary. Weight loss has been counseled. Outpatient pulmonary/sleep Clinic evaluation will be of benefit. Bilevel positive airway pressure ventilation therapy will be offered on a p.r.n. basis. He is appropriately on GI prophylaxis. He will be placed on DVT prophylaxis with SCDs in light of the thrombocytopenia. Other antiplatelet therapy will be deferred to Cardiology. Flu and pneumonia vaccination will be addressed per protocol. He will obviously has the temporary transvenous pacemaker in place. Thank you very much for the consult. We will follow along and make further recommendations as picture progresses/becomes clearer. He is critically ill on life-sustaining interventions including the cardiac pacemaker, at high risk of from cardiac and cardiopulmonary system decompensation. At this time, I spent about 35-40 minutes of critical care time without overlap and excluding any procedural time that may be necessary. JOB# [id number] [facility]
[2020-11-11 06:47] LABS: BUN/Creatinine Ratio 18; Blood Urea Nitrogen 16 mg/dL (9-20); Calcium 9.6 mg/dL (8.4-10.2); Hemolysis Index 9
[2020-11-11 06:51] LABS: Basophils % (Auto) 0.6 % (0.0-1.8); Eosinophils # (Auto) 0.4 K/mm3 (0.0-0.4); Eosinophils % (Auto) 7.6 % (0.0-4.3); Hematocrit 37.2 % (35.5-45.6); Hemoglobin 12.1 gm/dl (11.8-15.2); Lymphocytes # (Auto) 1.4 K/mm3 (1.2-5.4); Lymphocytes % (Auto) 27.1 % (13.4-35.0); Mean Corpuscular HGB Conc 33 % (32-34); Mean Corpuscular Volume 87 fl (84-94); Monocytes # (Auto) 0.5 K/mm3 (0.0-0.8); Monocytes % (Auto) 9.5 % (0.0-7.3); Platelet Count 110 K/mm3 (140-440); Red Blood Count 4.29 M/mm3 (3.65-5.03); Red Cell Distribution Width 15.7 % (13.2-15.2)
[2020-11-11] MEDS: HEPARIN 10,000 UNITS/10 ML VIAL ONE (07:53)
[2020-11-11] MEDS: INSULIN LISPRO 100 UNIT/ML VIAL 3 mL SUB-Q SCH ×4 (08:37→22:33)
[2020-11-11] MEDS: PANTOPRAZOLE 20 MG TAB PO SCH (08:38)
[2020-11-11] MEDS: ZINC SULFATE 220 MG CAP PO SCH (09:17)
[2020-11-11] MEDS: LOSARTAN 25 MG TAB PO SCH (09:17)
[2020-11-11] MEDS: ASCORBIC ACID 500 MG TAB PO SCH ×2 (09:17→22:32)
[2020-11-11] MEDS: ASPIRIN 325 MG TAB PO SCH (09:17)
[2020-11-11] MEDS: TAMSULOSIN 0.4 MG CAP PO SCH (09:17)
[2020-11-11] MEDS: amLODIPine 10 MG TAB PO SCH (09:17)
[2020-11-11] MEDS ORDERED: SODIUM CHLORIDE 0.9% 500 ML 500 ML IV SCH (10:00)
--- NOTE | 2020-11-11 10:32 | Progress Note ---
Assessment and Plan Assessment and Plan - Patient Problems (1) Bradycardia Current Visit: Yes Status: Acute Plan to address problem: Continue to monitor patient vital signs including heart rate Atropine was given in ED patient still has low heart rate in the 20s to 30s Nut Threader consulted pacemaker placement planned for morning Heart rate in 50s Patient for PPM on 11/12/2020 (2) Complete heart block Current Visit: Yes Status: Acute Plan to address problem: Patient on panel monitor has complete heart block He has shortness of breath only with activity No acute distress at rest Nut Threader consult appreciated For PPM 11/12/2020 (3) SOB (shortness of breath) Current Visit: Yes Status: Acute Plan to address problem: Continue oxygen supplement Monitor O2 sat and keep oxygen saturation greater than 90 As needed bronchodilator (4) Essential (primary) hypertension Current Visit: Yes Status: Acute Plan to address problem: Patient has a history of hypertension Monitor blood pressure continue home blood pressure medicine Will Adjust blood pressure medicine if needed ECHO-f/u with result (5) Person under investigation for COVID-19 Current Visit: Yes Status: Acute Plan to address problem: Patient has shortness of breath requiring oxygen Chest x-ray shows bilateral pulmonary opacity likely pneumonia/pulmonary edema We will order Covid test ID consult We will monitor inflammatory markers Ascorbic acid and zinc sulfate. (6) Bilateral pneumonia Current Visit: Yes Status: Acute Plan to address problem: Unknown cause Covid test ordered Blood culture and urinalysis Start azithromycin and Rocephin Check procalcitonin Subjective Date of service: 11/11/20 Principal diagnosis: Symptomatic Bradycardia Interval history: Patient is a 79-year-old male who presents emergency room with complaints of dyspnea on exertion and shortness of breath. Patient states his shortness of breath exertion started 3 days ago. Patient states shortness of breath and pain exertion only when he is walking. Patient states his symptom worse with exertion and better with rest. Patient Patient is seen at bedside. Patient is calm, he denies chest pain, nausea and vomiting. patient also denies fever, cough or chill. Discussed plan of care with the patient nurse at bedside. Patient nurse said he gave patient atropine at bedside but did not improve the heart rate. External pacemaker was placed, however patient did not tolerate the procedure in ED Patient is scheduled for pacemaker placement in the morning by engineering laboratory technician. Reviewed lab, MAR and vital signs. ED work-up shows WBC 4.2, hemoglobin 12.3, platelets 114, sodium level 145 Potassium level 4.0, serum glucose 147, creatinine 1.21. Reviewed panel monitor patient is on complete heart block at rate 20s to 30s Patient is CAlM and not in acute distress even with low heart rate. Chest x-ray done which showed diffuse bilateral pulmonary opacity most likely abdominal bilateral pneumonia/pulmonary edema For PPM on 11/12/2020 Objective - Constitutional Vitals: Vital Signs - 12hr 11/10/20 11/10/20 11/10/20 23:00 23:18 23:46 Temperature Pulse Rate 58 L 58 L Respiratory 14 14 Rate Blood Pressure 107/59 107/59 O2 Sat by Pulse 100 98 100 Oximetry 11/11/20 11/11/20 11/11/20 00:00 00:03 00:06 Temperature 98.4 F Pulse Rate 58 L 58 L Respiratory 13 Rate Blood Pressure 104/58 O2 Sat by Pulse 100 Oximetry 11/11/20 11/11/20 11/11/20 01:00 02:01 02:31 Temperature Pulse Rate 58 L 58 L 58 L Respiratory 14 13 20 Rate Blood Pressure 97/56 91/47 91/47 O2 Sat by Pulse 100 98 100 Oximetry 11/11/20 11/11/20 11/11/20 02:45 03:00 03:15 Temperature Pulse Rate 58 L 58 L 58 L Respiratory 13 13 13 Rate Blood Pressure 91/47 89/47 89/47 O2 Sat by Pulse 100 100 100 Oximetry 11/11/20 11/11/20 11/11/20 03:31 03:45 04:00 Temperature 98.5 F Pulse Rate 58 L 58 L 58 L Respiratory 13 13 13 Rate Blood Pressure 97/56 97/56 96/49 O2 Sat by Pulse 100 100 99 Oximetry 11/11/20 11/11/20 11/11/20 04:14 04:15 05:00 Temperature Pulse Rate 58 L 58 L 58 L Respiratory 13 14 Rate Blood Pressure 96/49 96/49 O2 Sat by Pulse 100 100 Oximetry 11/11/20 11/11/20 11/11/20 06:00 07:00 09:17 Temperature Pulse Rate 58 L 58 L 58 L Respiratory 15 14 Rate Blood Pressure 119/61 125/65 107/85 O2 Sat by Pulse 99 100 Oximetry General appearance: Present: no acute distress, well-nourished - EENT Eyes: PERRL, EOM intact ENT: hearing intact, clear oral mucosa Ears: bilateral: normal - Neck Neck: supple, normal ROM - Respiratory Respiratory effort: normal Respiratory: bilateral: CTA - Breasts Breasts: normal - Cardiovascular Heart rate: 50 Rhythm: regular Heart Sounds: Present: S1 & S2. Absent: gallop, rub Extremities: pulses intact, No edema, normal color, Full ROM - Gastrointestinal General gastrointestinal: Present: soft, non-tender, non-distended, normal bowel sounds - Genitourinary Male genitourinary: normal - Integumentary Integumentary: clear, warm, dry - Musculoskeletal Musculoskeletal: 1, strength equal bilaterally - Neurologic Neurologic: moves all extremities - Psychiatric Psychiatric: memory intact, appropriate mood/affect, intact judgment & insight - Labs CBC & Chem 7: 11/12/20 05:05 11/12/20 05:05 Labs: Abnormal lab results 11/10/20 11/10/20 11/10/20 Range/Units 11:53 17:10 22:11 RDW (13.2-15.2) % Plt Count (140-440) K/mm3 [place] % (Auto) (0.0-7.3) % Eos % (Auto) (0.0-4.3) % Glucose 144 H (75-100) mg/dL POC Glucose 117 H 128 H (70-105) mg/dL 11/11/20 11/11/20 11/11/20 Range/Units 04:39 04:39 07:35 RDW 15.7 H (13.2-15.2) % Plt Count 110 L (140-440) K/mm3 [place] % (Auto) 9.5 H (0.0-7.3) % Eos % (Auto) 7.6 H (0.0-4.3) % Glucose 129 H (75-100) mg/dL POC Glucose 110 H (70-105) mg/dL HEART Score - HEART Score Troponin: Troponin T < 0.010 ng/mL (0.00-0.029) 11/10/20 03:33
[2020-11-11] MEDS ORDERED: cefTRIAXone/NS 2 GM/100 ML 2 GM/100 ML BAG IV SCH (11:00)
--- NOTE | 2020-11-11 11:05 | Progress Note ---
Assessment and Plan TVP remains in place via right groin. tele reviewed - VPaced @ 60bpm with underlying CHB when temporary pacing is suspended. Cont present cardiac management. Plan for PPM implantation tomorrow. NPO after MN. The patient has been seen in conjunction with Dr. Zendejas who agrees with the assessment and plan of care. - Patient Problems (1) Hypertension Current Visit: Yes Status: Chronic Qualifiers: Hypertension type: essential hypertension Qualified Code(s): I10 - Essential (primary) hypertension (2) Hyperlipidemia Current Visit: Yes Status: Chronic Qualifiers: Hyperlipidemia type: mixed hyperlipidemia Qualified Code(s): E78.2 - Mixed hyperlipidemia (3) Diabetes mellitus Current Visit: Yes Status: Chronic Qualifiers: Diabetes mellitus type: type 2 Diabetes mellitus nursing home insulin use: with termite control service representative use Diabetes mellitus complication status: without complication Qualified Code(s): E11.9 - Type 2 diabetes mellitus without complications; Z79.4 - exterminator helper (current) use of insulin (4) 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 Subjective Date of service: 11/11/20 Principal diagnosis: Symptomatic Bradycardia Interval history: pt resting in bed, no current complaints. TVP remains in place via right groin. site c/d/i, no bleeding or hematoma noted. tele reviewed - VPaced @ 60bpm with underlying CHB when temporary pacing is suspended. Objective Last Vital Signs Temp 97.8 F 11/11/20 08:00 Pulse 60 11/11/20 10:00 Resp 9 L 11/11/20 10:00 BP 106/52 11/11/20 10:00 Pulse Ox 100 11/11/20 10:00 - Physical Examination General: No Apparent Distress HEENT: Positive: PERRL, Mucus Membranes Moist Neck: Positive: neck supple, trachea midline Cardiac: Positive: Regular Rate, S1/S2 Lungs: Positive: Decreased Breath Sounds Neuro: Positive: Grossly Intact Abdomen: Positive: Soft, Active Bowel Sounds. Negative: Tender, Distended Skin: Positive: Clear Incision: Cardiac Cath Site (right groin TVP site c/d/i, no bleeding or hematoma noted) Musculoskeletal: No Pain, Normal Range of Motion Extremities: Present: normal. Absent: edema - Labs and Meds CBC 11/11/20 Range/Units 04:39 WBC 5.3 (4.5-11.0) K/mm3 RBC 4.29 (3.65-5.03) M/mm3 Hgb 12.1 (11.8-15.2) gm/dl Hct 37.2 (35.5-45.6) % Plt Count 110 L (140-440) K/mm3 Lymph # (Auto) 1.4 (1.2-5.4) K/mm3 [place] # (Auto) 0.5 (0.0-0.8) K/mm3 Eos # (Auto) 0.4 (0.0-0.4) K/mm3 Baso # (Auto) 0.0 (0.0-0.1) K/mm3 Comprehensive Metabolic Panel 11/10/20 11/11/20 Range/Units 11:53 04:39 Sodium 144 (137-145) mmol/L Potassium 3.7 (3.6-5.0) mmol/L Chloride 106.8 (98-107) mmol/L Carbon Dioxide 30 (22-30) mmol/L BUN 16 (9-20) mg/dL Creatinine 0.9 (0.8-1.3) mg/dL Glucose 144 H 129 H (75-100) mg/dL Calcium 9.6 (8.4-10.2) mg/dL - Imaging and Cardiology EKG: report reviewed, image reviewed Cardiac cath: report reviewed (Left main patent LAD patent mildly Misbah circumflex patent mild Misbah's RCA moderate severe tortuosity patent mild Misbah is normal LV function) - Telemetry EKG Rhythm: Paced
--- NOTE | 2020-11-11 11:51 | Progress Note ---
Assessment and Plan Cultures: SARS CoV2 PCR: negative. A/P: 79-year-old male with hypertension, diabetes, hyperlipidemia admitted to the hospital with worsening shortness of breath that began 3 days prior to coming in. Also has CHB and was awaiting PPM placement: #Bilateral pneumonia: BNP not high. CRP 0.5. COVID negative. Opacities resolved. #Acute hypoxic respiratory failure: On 2 L by nasal cannula #Transaminitis #Complete heart block: awaiting PPM. Recs: Stopped antibiotics due to normal procalcitonin No evident sign of acute infection. Infectious disease will sign off. Please call with any questions. Lindsay Cabrera MD [facility] O: [phone] F: [phone] Subjective Date of service: 11/11/20 Principal diagnosis: Symptomatic Bradycardia Interval history: Afebrile, normal white count. COVID negative. Imaging personally reviewed: CXR: resolution of opacities. Objective - Exam Narrative Exam: Exam deferred due to PPE conservation strategy. Please see primary team's note for updated exam. - Constitutional Vitals: Vital Signs Temp Pulse Resp BP Pulse Ox 97.8 F 60 9 L 106/52 100 11/11/20 08:00 11/11/20 10:00 11/11/20 10:00 11/11/20 10:00 11/11/20 10:00 Temperature -Last 24 Hours Temperature 97.8 F Temperature 98.5 F Temperature 98.4 F Temperature 98.6 F - Labs CBC & Chem 7: 11/11/20 04:39 11/11/20 04:39 Labs: Abnormal lab results 11/10/20 11/10/20 11/10/20 Range/Units 11:53 17:10 22:11 RDW (13.2-15.2) % Plt Count (140-440) K/mm3 [place] % (Auto) (0.0-7.3) % Eos % (Auto) (0.0-4.3) % Glucose 144 H (75-100) mg/dL POC Glucose 117 H 128 H (70-105) mg/dL 11/11/20 11/11/20 11/11/20 Range/Units 04:39 04:39 07:35 RDW 15.7 H (13.2-15.2) % Plt Count 110 L (140-440) K/mm3 [place] % (Auto) 9.5 H (0.0-7.3) % Eos % (Auto) 7.6 H (0.0-4.3) % Glucose 129 H (75-100) mg/dL POC Glucose 110 H (70-105) mg/dL
--- NOTE | 2020-11-11 14:55 | Progress Note ---
Assessment and Plan Patient alert, awake. resting on 2 liutres o2. O2 saturation 100%. No complaint of chest pain or shortness of breath. has slight cough. Patient afebrile. No leukocytosis. Chest xray done 11/10/20 reported resolution of bilateral opacity. This likely represented a combination of vascular congestion/edema and atelectasis. Patient is on ceftriaxone, Albuterol inhaler and protonix. Patient was seen in IMCU. I spent critical care time of 31 minutes, talking to the patient, review the chart, examining the patient, review chest xray and lab results, talking to the respiratory therapy and nursing staff and work out plan of treatment on this critically ill patient. - Patient Problems (1) Bilateral pneumonia Current Visit: Yes Status: Acute Plan to address problem: Patient is on ceftriaxone. Finished course of zithromax. (2) Diastolic dysfunction with acute on chronic heart failure Current Visit: Yes Status: Acute Plan to address problem: Management as per cardiology. (3) Person under investigation for COVID-19 Current Visit: Yes Status: Acute Plan to address problem: Patients best virus test is negative. (4) Diabetes mellitus Current Visit: Yes Status: Chronic Qualifiers: Diabetes mellitus type: type 2 Diabetes mellitus meterman insulin use: with meterman use Diabetes mellitus complication status: without complication Qualified Code(s): E11.9 - Type 2 diabetes mellitus without complications; Z79.4 - terminal manager (current) use of insulin Plan to address problem: Management as per primary care. (5) SOB (shortness of breath) Current Visit: Yes Status: Acute Plan to address problem: Improved. Patient presently on 2 litres O2. O2 saturation 100%. Subjective Date of service: 11/11/20 Principal diagnosis: Symptomatic Bradycardia Interval history: Patient alert, awake. resting on 2 liutres o2. O2 saturation 100%. No complaint of chest pain or shortness of breath. has slight cough. Patient afebrile. No leukocytosis. Chest xray done 11/10/20 reported resolution of bilateral opacity. This likely represented a combination of vascular congestion/edema and atelectasis. Patient is on ceftriaxone, Albuterol inhaler and protonix. Objective Vital Signs - 12hr 11/11/20 11/11/20 11/11/20 03:00 03:15 03:31 Temperature Pulse Rate 58 L 58 L 58 L Pulse Rate [ From Monitor] Respiratory 13 13 13 Rate Blood Pressure 89/47 89/47 97/56 O2 Sat by Pulse 100 100 100 Oximetry 11/11/20 11/11/20 11/11/20 03:45 04:00 04:14 Temperature 98.5 F Pulse Rate 58 L 58 L 58 L Pulse Rate [ From Monitor] Respiratory 13 13 Rate Blood Pressure 97/56 96/49 O2 Sat by Pulse 100 99 Oximetry 11/11/20 11/11/20 11/11/20 04:15 05:00 06:00 Temperature Pulse Rate 58 L 58 L 58 L Pulse Rate [ From Monitor] Respiratory 13 14 15 Rate Blood Pressure 96/49 96/49 119/61 O2 Sat by Pulse 100 100 99 Oximetry 11/11/20 11/11/20 11/11/20 07:00 08:00 09:00 Temperature 97.8 F Pulse Rate 58 L 58 L 58 L Pulse Rate [ 58 L From Monitor] Respiratory 14 16 13 Rate Blood Pressure 125/65 125/65 107/85 O2 Sat by Pulse 100 100 98 Oximetry 11/11/20 11/11/20 11/11/20 09:17 10:00 11:00 Temperature Pulse Rate 58 L 60 60 Pulse Rate [ From Monitor] Respiratory 9 L 16 Rate Blood Pressure 107/85 106/52 103/61 O2 Sat by Pulse 100 99 Oximetry 11/11/20 11/11/20 12:00 13:00 Temperature 97.8 F Pulse Rate 59 L 60 Pulse Rate [ 59 L From Monitor] Respiratory 12 12 Rate Blood Pressure 114/51 123/76 O2 Sat by Pulse 100 100 Oximetry Constitutional: no acute distress, alert Eyes: non-icteric ENT: oropharynx moist Neck: supple Effort: mildly labored Ascultation: Bilateral: diminished breath sounds, rhonchi Cardiovascular: regular rate and rhythm Gastrointestinal: normoactive bowel sounds, soft, non-tender Integumentary: normal Extremities: no cyanosis, no edema Neurologic: normal mental status, non-focal exam, pupils equal and round Psychiatric: mood appropriate CBC and BMP: 11/11/20 04:39 11/11/20 04:39 ABG, PT/INR, D-dimer: PT/INR, D-dimer D-Dimer 3909.89 ng/mlDDU (0-234) H 11/10/20 03:33 Abnormal lab findings: Abnormal Labs 11/10/20 11/10/20 11/10/20 01:01 01:01 03:33 WBC 4.2 L RDW 15.9 H Plt Count 114 L Lymph % (Auto) 38.6 H [place] % (Auto) 10.9 H Eos % (Auto) 6.7 H D-Dimer Chloride 108.6 H Glucose 147 H POC Glucose Hemoglobin A1c 8.4 H AST 50 H ALT 59 H Lactate Dehydrogenase Albumin 3.7 L HDL Cholesterol Urine WBC (Auto) 11/10/20 11/10/20 11/10/20 03:33 03:33 03:33 WBC RDW Plt Count Lymph % (Auto) [place] % (Auto) Eos % (Auto) D-Dimer 3909.89 H Chloride Glucose 132 H POC Glucose Hemoglobin A1c AST ALT Lactate Dehydrogenase 219 H Albumin HDL Cholesterol 34 L Urine WBC (Auto) 11/10/20 11/10/20 11/10/20 04:36 11:53 17:10 WBC RDW Plt Count Lymph % (Auto) [place] % (Auto) Eos % (Auto) D-Dimer Chloride Glucose 144 H POC Glucose 117 H Hemoglobin A1c AST ALT Lactate Dehydrogenase Albumin HDL Cholesterol Urine WBC (Auto) 67.0 H 11/10/20 11/11/20 11/11/20 22:11 04:39 04:39 WBC RDW 15.7 H Plt Count 110 L Lymph % (Auto) [place] % (Auto) 9.5 H Eos % (Auto) 7.6 H D-Dimer Chloride Glucose 129 H POC Glucose 128 H Hemoglobin A1c AST ALT Lactate Dehydrogenase Albumin HDL Cholesterol Urine WBC (Auto) 11/11/20 11/11/20 07:35 11:56 WBC RDW Plt Count Lymph % (Auto) [place] % (Auto) Eos % (Auto) D-Dimer Chloride Glucose POC Glucose 110 H 123 H Hemoglobin A1c AST ALT Lactate Dehydrogenase Albumin HDL Cholesterol Urine WBC (Auto) Chest x-ray: report reviewed, image reviewed Additional Studies: CHEST 1 VIEW 11/10/2020 1:48 PM INDICATION / CLINICAL INFORMATION: s/p pacemaker. COMPARISON: 11/10/2020. FINDINGS: SUPPORT DEVICES: None. HEART / MEDIASTINUM: No significant abnormality. LUNGS / PLEURA: Near resolution of bilateral opacity. Mild underlying interstitial thickening is likely chronic. No pneumothorax. ADDITIONAL FINDINGS: No significant additional findings. IMPRESSION: Resolution of bilateral opacity. This likely represented a combination of vascular congestion/edema and atelectasis.
[2020-11-12 05:35] LABS: Basophils % (Auto) 0.5 % (0.0-1.8); Eosinophils # (Auto) 0.4 K/mm3 (0.0-0.4); Hematocrit 40.5 % (35.5-45.6); Hemoglobin 13.2 gm/dl (11.8-15.2); Lymphocytes # (Auto) 1.4 K/mm3 (1.2-5.4); Lymphocytes % (Auto) 28.2 % (13.4-35.0); Mean Corpuscular HGB Conc 33 % (32-34); Mean Corpuscular Volume 87 fl (84-94); Monocytes # (Auto) 0.5 K/mm3 (0.0-0.8); Monocytes % (Auto) 9.5 % (0.0-7.3); Platelet Count 102 K/mm3 (140-440); Red Blood Count 4.65 M/mm3 (3.65-5.03); Red Cell Distribution Width 15.4 % (13.2-15.2)
[2020-11-12 05:45] LABS: INR 1.14 (0.87-1.13)
[2020-11-12 05:49] LABS: BUN/Creatinine Ratio 16; Blood Urea Nitrogen 14 mg/dL (9-20); Calcium 9.4 mg/dL (8.4-10.2); Hemolysis Index 23
--- NOTE | 2020-11-12 07:19 | Progress Note ---
Assessment and Plan Assessment and Plan - Patient Problems (1) Bradycardia Current Visit: Yes Status: Acute Plan to address problem: Continue to monitor patient vital signs including heart rate Atropine was given in ED patient still has low heart rate in the 20s to 30s Manager Of Corporate [employer] consulted pacemaker placement planned for morning Patient is stable not in acute distress Had PPM today Postprocedure doing well (2) Complete heart block Current Visit: Yes Status: Acute Plan to address problem: Patient on patient monitor has complete heart block He has shortness of breath only with activity No acute distress at rest Manager Of [employer] consult appreciated Had PPM today Postprocedure patient doing well (3) SOB (shortness of breath) Current Visit: Yes Status: Acute Plan to address problem: Echocardiogram result on the chart Ejection fraction is 55% Normal systolic pressures in the chambers (4) Essential (primary) hypertension Current Visit: Yes Status: Acute Plan to address problem: (5) Bilateral pneumonia Current Visit: Yes Status: Acute Plan to address problem: Unknown cause Covid test ordered Blood culture and urinalysis Start azithromycin and Rocephin Check procalcitonin (6) DVT prophylaxis Subjective Date of service: 11/12/20 Principal diagnosis: Symptomatic Bradycardia Interval history: Patient is a 79-year-old male who presents emergency room with complaints of dyspnea on exertion and shortness of breath. Patient states his shortness of breath exertion started 3 days ago. Patient states shortness of breath and pain exertion only when he is walking. Patient states his symptom worse with exertion and better with rest. Patient Patient is seen at bedside. Patient is calm, he denies chest pain, nausea and vomiting. patient also denies fever, cough or chill. Discussed plan of care with the patient nurse at bedside. Patient nurse said he gave patient atropine at bedside but did not improve the heart rate. External pacemaker was placed, however patient did not tolerate the procedure in ED Patient is scheduled for pacemaker placement in the morning by analysis mgr. Reviewed lab, MAR and vital signs. ED work-up shows WBC 4.2, hemoglobin 12.3, platelets 114, sodium level 145 Potassium level 4.0, serum glucose 147, creatinine 1.21. Reviewed groundwater monitoring technician patient is on complete heart block at rate 20s to 30s Patient is CAlM and not in acute distress even with low heart rate. Chest x-ray done which showed diffuse bilateral pulmonary opacity most likely abdominal bilateral pneumonia/pulmonary edema Patient had PPM today Postprocedure patient doing well Objective - Constitutional Vitals: Vital Signs - 12hr 11/11/20 11/11/20 11/11/20 20:00 20:28 21:00 Temperature 97.3 F L Pulse Rate 54 L 54 L 59 L Pulse Rate [ 54 L From Monitor] Respiratory 15 15 11 L Rate Blood Pressure 114/51 105/59 O2 Sat by Pulse 100 100 100 Oximetry 11/11/20 11/11/20 11/12/20 22:00 23:00 00:00 Temperature 97.7 F Pulse Rate 60 50 L 59 L Pulse Rate [ 59 L From Monitor] Respiratory 15 15 15 Rate Blood Pressure 104/54 122/61 113/61 O2 Sat by Pulse 100 100 100 Oximetry 11/12/20 11/12/20 11/12/20 01:00 02:00 03:00 Temperature Pulse Rate 59 L 60 60 Pulse Rate [ From Monitor] Respiratory 13 14 15 Rate Blood Pressure 116/63 98/52 102/54 O2 Sat by Pulse 100 100 100 Oximetry 11/12/20 11/12/20 11/12/20 04:00 04:01 05:00 Temperature 98.2 F Pulse Rate 50 L 60 50 L Pulse Rate [ 50 L From Monitor] Respiratory 14 13 13 Rate Blood Pressure 75/39 130/62 O2 Sat by Pulse 100 100 99 Oximetry 11/12/20 06:01 Temperature Pulse Rate 43 L Pulse Rate [ From Monitor] Respiratory 12 Rate Blood Pressure 108/51 O2 Sat by Pulse 100 Oximetry General appearance: Present: no acute distress, well-nourished - EENT Eyes: PERRL, EOM intact ENT: hearing intact, clear oral mucosa Ears: bilateral: normal - Neck Neck: supple, normal ROM - Respiratory Respiratory effort: normal Respiratory: bilateral: CTA - Breasts Breasts: normal - Cardiovascular Heart rate: 64 Rhythm: regular Heart Sounds: Present: S1 & S2. Absent: gallop, rub Extremities: pulses intact, No edema, normal color, Full ROM - Gastrointestinal General gastrointestinal: Present: soft, non-tender, non-distended, normal bowel sounds - Genitourinary Male genitourinary: normal - Integumentary Integumentary: clear, warm, dry - Musculoskeletal Musculoskeletal: 1, strength equal bilaterally - Neurologic Neurologic: moves all extremities - Psychiatric Psychiatric: memory intact, appropriate mood/affect, intact judgment & insight - Allied health notes Allied health notes reviewed: nursing, case management - Labs CBC & Chem 7: 11/12/20 05:05 11/12/20 05:05 Labs: Abnormal lab results 11/11/20 11/11/20 11/11/20 Range/Units 07:35 11:56 15:52 RDW (13.2-15.2) % Plt Count (140-440) K/mm3 [place] % (Auto) (0.0-7.3) % Eos % (Auto) (0.0-4.3) % INR (0.87-1.13) Glucose (75-100) mg/dL POC Glucose 110 H 123 H 110 H (70-105) mg/dL 11/11/20 11/12/20 11/12/20 Range/Units 21:30 05:05 05:05 RDW 15.4 H (13.2-15.2) % Plt Count 102 L (140-440) K/mm3 [place] % (Auto) 9.5 H (0.0-7.3) % Eos % (Auto) 8.0 H (0.0-4.3) % INR 1.14 H (0.87-1.13) Glucose (75-100) mg/dL POC Glucose 150 H (70-105) mg/dL 11/12/20 11/12/20 Range/Units 05:05 05:33 RDW (13.2-15.2) % Plt Count (140-440) K/mm3 [place] % (Auto) (0.0-7.3) % Eos % (Auto) (0.0-4.3) % INR (0.87-1.13) Glucose 133 H (75-100) mg/dL POC Glucose 115 H (70-105) mg/dL Echocardiogram Ejection fraction is 50 to 55% Abnormal ventricular septal wall motion consistent with right ventricular pacemaker Mild concentric left ventricular hypertrophy is observed Basis trace aortic regurgitation Right ventricular global systolic function is normal HEART Score - HEART Score Troponin: Troponin T < 0.010 ng/mL (0.00-0.029) 11/10/20 03:33
[2020-11-12] MEDS: PANTOPRAZOLE 20 MG TAB PO SCH (07:35)
[2020-11-12] MEDS: INSULIN LISPRO 100 UNIT/ML VIAL 3 mL SUB-Q SCH ×3 (08:00→22:26)
[2020-11-12] MEDS: TAMSULOSIN 0.4 MG CAP PO SCH (10:22)
[2020-11-12] MEDS: LOSARTAN 25 MG TAB PO SCH (10:22)
[2020-11-12] MEDS: amLODIPine 10 MG TAB PO SCH (10:22)
[2020-11-12] MEDS: ASPIRIN 325 MG TAB PO SCH (10:22)
[2020-11-12] MEDS: ZINC SULFATE 220 MG CAP PO SCH (10:23)
[2020-11-12] MEDS: ASCORBIC ACID 500 MG TAB PO SCH ×2 (10:23→22:09)
--- NOTE | 2020-11-12 10:28 | Progress Note ---
Assessment and Plan Patient sleeping.Patient resting on 2 liutres o2. O2 saturation 100%. No acute respiratory distress.Patient afebrile. No leukocytosis. Chest xray done 11/10/20 reported resolution of bilateral opacity. This likely represented a combination of vascular congestion/edema and atelectasis. Patient is on ceftriaxone, Cephazolin and Albuterol inhaler and protonix. Patient has PPM placement by cardiology. Patient was seen in [facility]. I spent critical care time of 35 minutes, talking to the patient, review the chart, examining the patient, review chest xray and lab results, talking to the respiratory therapy and nursing staff and work out plan of treatment on this critically ill patient. - Patient Problems (1) Bilateral pneumonia Current Visit: Yes Status: Acute Plan to address problem: Patient is on ceftriaxone. Finished course of zithromax. (2) Diastolic dysfunction with acute on chronic heart failure Current Visit: Yes Status: Acute Plan to address problem: Management as per cardiology. (3) Person under investigation for COVID-19 Current Visit: Yes Status: Acute Plan to address problem: Patients best virus test is negative. (4) Diabetes mellitus Current Visit: Yes Status: Chronic Qualifiers: Diabetes mellitus type: type 2 Diabetes mellitus superintendent terminal insulin use: with senior living use Diabetes mellitus complication status: without complication Qualified Code(s): E11.9 - Type 2 diabetes mellitus without complications; Z79.4 - shelter (current) use of insulin Plan to address problem: Management as per primary care. (5) SOB (shortness of breath) Current Visit: Yes Status: Acute Plan to address problem: Improved. Patient presently on 2 litres O2. O2 saturation 100%. Subjective Date of service: 11/12/20 Principal diagnosis: Symptomatic Bradycardia Interval history: Patient sleeping.Patient resting on 2 liutres o2. O2 saturation 100%. No acute respiratory distress.Patient afebrile. No leukocytosis. Chest xray done 11/10/20 reported resolution of bilateral opacity. This likely represented a combination of vascular congestion/edema and atelectasis. Patient is on ceftriaxone, Cephazolin and Albuterol inhaler and protonix. Patient has PPM placement by cardiology. Objective Vital Signs - 12hr 11/11/20 11/12/20 11/12/20 23:00 00:00 01:00 Temperature 97.7 F Pulse Rate 50 L 59 L 59 L Pulse Rate [ 59 L From Monitor] Respiratory 15 15 13 Rate Blood Pressure 122/61 113/61 116/63 O2 Sat by Pulse 100 100 100 Oximetry 11/12/20 11/12/20 11/12/20 02:00 03:00 04:00 Temperature 98.2 F Pulse Rate 60 60 50 L Pulse Rate [ 50 L From Monitor] Respiratory 14 15 14 Rate Blood Pressure 98/52 102/54 O2 Sat by Pulse 100 100 100 Oximetry 11/12/20 11/12/20 11/12/20 04:01 05:00 06:01 Temperature Pulse Rate 60 50 L 43 L Pulse Rate [ From Monitor] Respiratory 13 13 12 Rate Blood Pressure 75/39 130/62 108/51 O2 Sat by Pulse 100 99 100 Oximetry 11/12/20 11/12/20 11/12/20 07:01 08:00 08:01 Temperature 97.8 F Pulse Rate 60 54 L 46 L Pulse Rate [ 54 L From Monitor] Respiratory 16 16 12 Rate Blood Pressure 101/59 131/59 O2 Sat by Pulse 100 100 100 Oximetry 11/12/20 11/12/20 11/12/20 09:01 09:35 10:22 Temperature Pulse Rate 60 59 L Pulse Rate [ From Monitor] Respiratory 12 Rate Blood Pressure 130/56 135/69 O2 Sat by Pulse 96 100 Oximetry Constitutional: no acute distress, asleep Eyes: non-icteric ENT: oropharynx moist Neck: supple Effort: mildly labored Ascultation: Bilateral: diminished breath sounds, rhonchi Cardiovascular: regular rate and rhythm Gastrointestinal: normoactive bowel sounds, soft, non-tender Integumentary: normal Extremities: no cyanosis, no edema Neurologic: normal mental status, non-focal exam, pupils equal and round Psychiatric: mood appropriate CBC and BMP: 11/12/20 05:05 11/12/20 05:05 ABG, PT/INR, D-dimer: PT/INR, D-dimer PT 14.5 Sec. (12.2-14.9) 11/12/20 05:05 INR 1.14 (0.87-1.13) H 11/12/20 05:05 D-Dimer 3909.89 ng/mlDDU (0-234) H 11/10/20 03:33 Abnormal lab findings: Abnormal Labs 11/10/20 11/10/20 11/10/20 01:01 01:01 03:33 WBC 4.2 L RDW 15.9 H Plt Count 114 L Lymph % (Auto) 38.6 H [place] % (Auto) 10.9 H Eos % (Auto) 6.7 H INR D-Dimer Chloride 108.6 H Glucose 147 H POC Glucose Hemoglobin A1c 8.4 H AST 50 H ALT 59 H Lactate Dehydrogenase Albumin 3.7 L HDL Cholesterol Urine WBC (Auto) 11/10/20 11/10/20 11/10/20 03:33 03:33 03:33 WBC RDW Plt Count Lymph % (Auto) [place] % (Auto) Eos % (Auto) INR D-Dimer 3909.89 H Chloride Glucose 132 H POC Glucose Hemoglobin A1c AST ALT Lactate Dehydrogenase 219 H Albumin HDL Cholesterol 34 L Urine WBC (Auto) 11/10/20 11/10/20 11/10/20 04:36 11:53 17:10 WBC RDW Plt Count Lymph % (Auto) [place] % (Auto) Eos % (Auto) INR D-Dimer Chloride Glucose 144 H POC Glucose 117 H Hemoglobin A1c AST ALT Lactate Dehydrogenase Albumin HDL Cholesterol Urine WBC (Auto) 67.0 H 11/10/20 11/11/20 11/11/20 22:11 04:39 04:39 WBC RDW 15.7 H Plt Count 110 L Lymph % (Auto) [place] % (Auto) 9.5 H Eos % (Auto) 7.6 H INR D-Dimer Chloride Glucose 129 H POC Glucose 128 H Hemoglobin A1c AST ALT Lactate Dehydrogenase Albumin HDL Cholesterol Urine WBC (Auto) 11/11/20 11/11/20 11/11/20 07:35 11:56 15:52 WBC RDW Plt Count Lymph % (Auto) [place] % (Auto) Eos % (Auto) INR D-Dimer Chloride Glucose POC Glucose 110 H 123 H 110 H Hemoglobin A1c AST ALT Lactate Dehydrogenase Albumin HDL Cholesterol Urine WBC (Auto) 11/11/20 11/12/20 11/12/20 21:30 05:05 05:05 WBC RDW 15.4 H Plt Count 102 L Lymph % (Auto) [place] % (Auto) 9.5 H Eos % (Auto) 8.0 H INR 1.14 H D-Dimer Chloride Glucose POC Glucose 150 H Hemoglobin A1c AST ALT Lactate Dehydrogenase Albumin HDL Cholesterol Urine WBC (Auto) 11/12/20 11/12/20 11/12/20 05:05 05:33 09:50 WBC RDW Plt Count Lymph % (Auto) [place] % (Auto) Eos % (Auto) INR D-Dimer Chloride Glucose 133 H POC Glucose 115 H 128 H Hemoglobin A1c AST ALT Lactate Dehydrogenase Albumin HDL Cholesterol Urine WBC (Auto)
[2020-11-12] MEDS: cefTRIAXone/NS 2 GM/100 ML 2 GM/100 ML BAG IV SCH (11:14)
--- NOTE | 2020-11-12 11:23 | Progress Note ---
Assessment and Plan Proceed with PPM implantation today. The patient has been seen in conjunction with Dr. Zendejas who agrees with the assessment and plan of care. - Patient Problems (1) Hypertension Current Visit: Yes Status: Chronic Qualifiers: Hypertension type: essential hypertension Qualified Code(s): I10 - Essential (primary) hypertension (2) Hyperlipidemia Current Visit: Yes Status: Chronic Qualifiers: Hyperlipidemia type: mixed hyperlipidemia Qualified Code(s): E78.2 - Mixed hyperlipidemia (3) Diabetes mellitus Current Visit: Yes Status: Chronic Qualifiers: Diabetes mellitus type: type 2 Diabetes mellitus fdc insulin use: with fdc use Diabetes mellitus complication status: without complication Qualified Code(s): E11.9 - Type 2 diabetes mellitus without complications; Z79.4 - termite treater (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 TVP remains in place via right groin. site c/d/i, no bleeding or hematoma noted. tele reviewed - VPaced @ 60bpm with underlying CHB when temporary pacing is suspended. Objective Last Vital Signs Temp 97.8 F 11/12/20 08:00 Pulse 54 L 11/12/20 11:00 Resp 13 11/12/20 11:00 BP 127/58 11/12/20 11:00 Pulse Ox 100 11/12/20 11:00 - Physical Examination General: No Apparent Distress HEENT: Positive: PERRL, Mucus Membranes Moist Neck: Positive: neck supple, trachea midline Cardiac: Positive: Regular Rate, S1/S2 Lungs: Positive: Decreased Breath Sounds Neuro: Positive: Grossly Intact Abdomen: Positive: Soft, Active Bowel Sounds. Negative: Tender, Distended Skin: Positive: Clear Incision: Cardiac Cath Site (right groin TVP site c/d/i, no bleeding or hematoma noted) Musculoskeletal: No Pain, Normal Range of Motion Extremities: Present: normal. Absent: edema - Labs and Meds Coagulation 11/12/20 Range/Units 05:05 PT 14.5 (12.2-14.9) Sec. INR 1.14 H (0.87-1.13) CBC 11/12/20 Range/Units 05:05 WBC 5.1 (4.5-11.0) K/mm3 RBC 4.65 (3.65-5.03) M/mm3 Hgb 13.2 (11.8-15.2) gm/dl Hct 40.5 (35.5-45.6) % Plt Count 102 L (140-440) K/mm3 Lymph # (Auto) 1.4 (1.2-5.4) K/mm3 [place] # (Auto) 0.5 (0.0-0.8) K/mm3 Eos # (Auto) 0.4 (0.0-0.4) K/mm3 Baso # (Auto) 0.0 (0.0-0.1) K/mm3 Comprehensive Metabolic Panel 11/12/20 Range/Units 05:05 Sodium 138 (137-145) mmol/L Potassium 3.9 (3.6-5.0) mmol/L Chloride 104.5 (98-107) mmol/L Carbon Dioxide 24 (22-30) mmol/L BUN 14 (9-20) mg/dL Creatinine 0.9 (0.8-1.3) mg/dL Glucose 133 H (75-100) mg/dL Calcium 9.4 (8.4-10.2) mg/dL - Imaging and Cardiology EKG: report reviewed, image reviewed Cardiac cath: report reviewed (Left main patent LAD patent mildly Misbah circumflex patent mild Misbah's RCA moderate severe tortuosity patent mild Misbah is normal LV function) - Telemetry EKG Rhythm: Sinus Rhythm
--- NOTE | 2020-11-12 12:45 | Anesthesia Consultation ---
Anesthesia Consult and Med Hx Date of service: 11/12/20 - Airway Anesthetic Teeth Evaluation: Good ROM Head & Neck: Adequate Mental/Hyoid Distance: Adequate Mallampati Class: Class II Intubation Access Assessment: Possibly Difficult - Pulmonary Exam CTA: Yes - Cardiac Exam Anesthetic Concerns: SB, 3 degree hr block - Pre-Operative Health Status ASA Pre-Surgery Classification: ASA4 Proposed Anesthetic Plan: MAC - Pulmonary Home Oxygen Therapy: No - Cardiovascular System Hx Hypertension: Yes Hx Cardia Arrhythmia: Yes (3rd hr block) - Gastrointestinal Hx Gastroesophageal Reflux Disease: Yes (occasional) - Endocrine Hx Non-Insulin Dependent Diabetes: Yes - Other Systems Hx Obesity: Yes
--- NOTE | 2020-11-12 12:46 | Anesthesia Day of Surgery ---
Anesthesia Day of Surgery - Day of Surgery Patient Examined: Yes Patient H&P Reviewed: Yes Patient is NPO: Yes
[2020-11-12] MEDS ORDERED: SODIUM CHLORIDE IRRI 500 ML 500 ML IR ONE (13:34)
[2020-11-12] MEDS ORDERED: ceFAZolin/Water 2 GM/20 ML 2 GM/20 ML SYRINGE IV ONE (13:35)
[2020-11-12] MEDS ORDERED: SODIUM CHLORIDE 0.9% 1000 ML 1,000 ML ONE ×2 (13:35→15:13)
[2020-11-12] MEDS ORDERED: SODIUM CHLORIDE IRRI 1000 ML 1,000 ML, .VANCOMYCIN VIAL 1,000 MG IR ONE (13:45)
[2020-11-12] MEDS ORDERED: MIDAZOLAM 2 MG/2 ML INJ ONE (13:57)
[2020-11-12] MEDS ORDERED: HYDROmorphone 1 MG/1 ML INJ ONE (13:57)
[2020-11-12] MEDS: BUPIVACAINE/PF (0.5%) 5 MG/1 ML 30 ML VIAL INFILTRATI ONE ×2 (14:36→16:03)
[2020-11-12] MEDS: LIDOCAINE (1%) 10 MG/1 ML VIAL 20 ML MDV ONE ×3 (14:36→16:04)
[2020-11-12] MEDS ORDERED: BUPIVACAINE/PF (0.5%) 5 MG/1 ML 30 ML VIAL INFILTRATI ONE (16:00)
[2020-11-12] MEDS ORDERED: .VANCOMYCIN VIAL 1,000 MG in SODIUM CHLORIDE IRRI 1000 ML 1,000 ML IRRIGATION ONE (16:04)
[2020-11-12] MEDS ORDERED: PHENYLEPHRINE/NS 1,000 MCG/10 ML SYRINGE (OR USE) IV ONE (17:23)
[2020-11-12] MEDS ORDERED: LIDOCAINE MPF (2%) 20 MG/1 ML VIAL 5 ML ONE (17:23)
--- NOTE | 2020-11-12 19:25 | Post Anesthesia Evaluation ---
- Post Anesthesia Evaluation Patient Participated: Yes Airway Patent: Yes Stable Respiratory Function: Yes Nausea/Vomiting: No Temp > 96.8F: Yes Pain Manageable: Yes Adequeate Hydration: Yes Anesthesia Complications: No Block Receding Appropriately: Not Applicable Patient on Ventilator: No
--- NOTE | 2020-11-12 21:08 | XRay Report ---
CHEST 1 VIEW 191 INDICATION / CLINICAL INFORMATION: Pacemaker Postop COMPARISON: 11/10/2020 FINDINGS: SUPPORT DEVICES: A new left subclavian bipolar transvenous pacer is seen with lead tips appearing to be in satisfactory position. HEART / MEDIASTINUM: Stable LUNGS / PLEURA: Chronic pulmonary changes are again noted. Mild asymmetric density in the right upper lobe is less prominent. No pneumothorax. ADDITIONAL FINDINGS: No significant additional findings. Signer Name: Williams Kenney MD Signed: 11/12/2020 9:03 PM Workstation Name: [id number]
[2020-11-12] MEDS: ceFAZolin/NS 1 GM/50 ML 1 GM/50 ML BAG IV SCH (22:08)
--- NOTE | 2020-11-12 23:45 | Progress Note ---
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 He has shortness of breath only with activity No acute distress at rest Trouble Tracer consult appreciated Had PPM today Postprocedure patient doing well (3) SOB (shortness of breath) Current Visit: Yes Status: Acute Plan to address problem: Echocardiogram result on the chart Ejection fraction is 55% Normal systolic pressures in the chambers (4) Essential (primary) hypertension Current Visit: Yes Status: Acute Plan to address problem: (5) Bilateral pneumonia Current Visit: Yes Status: Acute Plan to address problem: Unknown cause Covid test ordered Blood culture and urinalysis Start azithromycin and Rocephin Check procalcitonin (6) DVT prophylaxis Subjective Date of service: 11/12/20 Principal diagnosis: Symptomatic Bradycardia Interval history: Patient is a 79-year-old male who presents emergency room with complaints of dyspnea on exertion and shortness of breath. Patient states his shortness of breath exertion started 3 days ago. Patient states shortness of breath and pain exertion only when he is walking. Patient states his symptom worse with exertion and better with rest. Patient Patient is seen at bedside. Patient is calm, he denies chest pain, nausea and vomiting. patient also denies fever, cough or chill. Discussed plan of care with the patient nurse at bedside. Patient nurse said he gave patient atropine at bedside but did not improve the heart rate. External pacemaker was placed, however patient did not tolerate the procedure in ED Patient is scheduled for pacemaker placement in the morning by toll relief operator. Reviewed lab, MAR and vital signs. ED work-up shows WBC 4.2, hemoglobin 12.3, platelets 114, sodium level 145 Potassium level 4.0, serum glucose 147, creatinine 1.21. 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 Chest x-ray done which showed diffuse bilateral pulmonary opacity most likely abdominal bilateral pneumonia/pulmonary edema Patient had PPM today Postprocedure patient doing well Objective - Constitutional Vitals: Vital Signs - 12hr 11/12/20 11/12/20 11/12/20 11:51 12:00 16:37 Temperature 98.1 F Pulse Rate 59 L 59 L 104 H Pulse Rate [ 59 L From Monitor] Respiratory 12 14 12 Rate Blood Pressure 127/58 Blood Pressure [Right] O2 Sat by Pulse 100 100 Oximetry 11/12/20 11/12/20 11/12/20 16:40 18:37 19:35 Temperature 99.5 F Pulse Rate 105 H 82 87 Pulse Rate [ From Monitor] Respiratory 18 20 18 Rate Blood Pressure 123/66 131/83 Blood Pressure 124/72 [Right] O2 Sat by Pulse 95 96 Oximetry General appearance: Present: no acute distress, well-nourished - EENT Eyes: PERRL, EOM intact ENT: hearing intact, clear oral mucosa Ears: bilateral: normal - Neck Neck: supple, normal ROM - Respiratory Respiratory effort: normal Respiratory: bilateral: CTA - Breasts Breasts: normal - Cardiovascular Rhythm: regular Heart Sounds: Present: S1 & S2. Absent: gallop, rub Extremities: pulses intact, No edema, normal color, Full ROM - Gastrointestinal General gastrointestinal: Present: soft, non-tender, non-distended, normal bowel sounds - Genitourinary Male genitourinary: normal - Integumentary Integumentary: clear, warm, dry - Musculoskeletal Musculoskeletal: 1, strength equal bilaterally - Neurologic Neurologic: moves all extremities - Psychiatric Psychiatric: memory intact, appropriate mood/affect, intact judgment & insight - Labs CBC & Chem 7: 11/12/20 05:05 11/12/20 05:05 Labs: Abnormal lab results 11/12/20 11/12/20 11/12/20 Range/Units 05:05 05:05 05:05 RDW 15.4 H (13.2-15.2) % Plt Count 102 L (140-440) K/mm3 [place] % (Auto) 9.5 H (0.0-7.3) % Eos % (Auto) 8.0 H (0.0-4.3) % INR 1.14 H (0.87-1.13) Glucose 133 H (75-100) mg/dL POC Glucose (70-105) mg/dL 11/12/20 11/12/20 11/12/20 Range/Units 05:33 09:50 22:23 RDW (13.2-15.2) % Plt Count (140-440) K/mm3 [place] % (Auto) (0.0-7.3) % Eos % (Auto) (0.0-4.3) % INR (0.87-1.13) Glucose (75-100) mg/dL POC Glucose 115 H 128 H 185 H (70-105) mg/dL HEART Score - HEART Score Troponin: Troponin T < 0.010 ng/mL (0.00-0.029) 11/10/20 03:33
[2020-11-13] MEDS: PANTOPRAZOLE 20 MG TAB PO SCH (07:48)
[2020-11-13] MEDS: INSULIN LISPRO 100 UNIT/ML VIAL 3 mL SUB-Q SCH ×3 (08:05→12:10)
[2020-11-13] MEDS: ceFAZolin/NS 1 GM/50 ML 1 GM/50 ML BAG IV SCH (08:07)
[2020-11-13] MEDS ORDERED: ceFAZolin/NS 1 GM/50 ML 1 GM/50 ML BAG IV SCH (08:30)
[2020-11-13 10:10] VITALS: BP 173/77
[2020-11-13] MEDS: ASPIRIN 325 MG TAB PO SCH (10:41)
[2020-11-13] MEDS: ASCORBIC ACID 500 MG TAB PO SCH (10:41)
[2020-11-13] MEDS: LOSARTAN 25 MG TAB PO SCH (10:41)
[2020-11-13] MEDS: cefTRIAXone/NS 2 GM/100 ML 2 GM/100 ML BAG IV SCH (10:41)
[2020-11-13] MEDS: amLODIPine 10 MG TAB PO SCH (10:42)
[2020-11-13] MEDS: TAMSULOSIN 0.4 MG CAP PO SCH (10:42)
--- NOTE | 2020-11-13 11:48 | Progress Note ---
Assessment and Plan S/p PPM implantation yesterday. Post-procedure CXR with NAF, no pneumothorax. Device interrogation this AM showed normal device function. Currently stable cardiac status. Pt may discharge from cardiology standpoint. Follow up in our [place] office for post-procedure device clinic on 11/29/2020 @ 2:30PM. Follow up in our [place] office with Dr. Zendejas on 12/16/2020 @ 10:00AM. The patient has been seen in conjunction with Dr. Zendejas who agrees with the assessment and plan of care. 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: with rat exterminator use Diabetes mellitus complication status: without complication Qualified Code(s): E11.9 - Type 2 diabetes mellitus without complications; Z79.4 - residential (current) use of insulin (4) 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 Subjective Date of service: 11/13/20 Principal diagnosis: Symptomatic Bradycardia Interval history: pt resting in bed, no current complaints. s/p PPM implantation yesterday. tele reviewed - VPaced overnight. Objective Last Vital Signs Temp 98.4 F 11/13/20 09:40 Pulse 93 H 11/13/20 10:00 Resp 20 11/13/20 09:40 BP 173/77 11/13/20 09:40 Pulse Ox 97 11/13/20 09:40 - Physical Examination General: No Apparent Distress HEENT: Positive: PERRL, Mucus Membranes Moist Neck: Positive: neck supple, trachea midline Cardiac: Positive: Regular Rate, S1/S2 Lungs: Positive: Decreased Breath Sounds Neuro: Positive: Grossly Intact Abdomen: Positive: Soft, Active Bowel Sounds. Negative: Tender, Distended Skin: Positive: Clear Incision: Incision Site (left pectoralis PPM implantation site pressure dressing removed, telfa and tegaderm dressing present, site c/d/i with no bleeding or hematoma noted), Cardiac Cath Site (right groin TVP site c/d/i, no bleeding or hematoma noted) Musculoskeletal: No Pain, Normal Range of Motion Extremities: Present: normal. Absent: edema - Imaging and Cardiology EKG: report reviewed, image reviewed Cardiac cath: report reviewed (Left main patent LAD patent mildly Misbah circumflex patent mild Misbah's RCA moderate severe tortuosity patent mild Misbah is normal LV function)
--- NOTE | 2020-11-13 14:36 | Discharge Summary ---
Providers - Providers Date of Admission: 11/10/20 02:10 Date of discharge: 11/13/20 Attending physician: CANDY HERNANDEZ 11/10/20 02:09 Consult to Physician [CONS] Routine Comment: Consulting Provider: TRENTON ZENDEJAS Physician Instructions: Reason For Exam: complete av block 11/10/20 03:20 Consult to Physician [CONS] Stat Comment: Consulting Provider: NITIN DOS SANTOS Physician Instructions: Reason For Exam: covid pui 11/10/20 03:30 Consult to Physician [CONS] Routine Comment: Consulting Provider: NITIN DOS SANTOS Physician Instructions: Reason For Exam: r/o covid 11/10/20 03:31 Consult to Physician [CONS] Stat Comment: spoke to dr. Fong / petra Consulting Provider: JOSEPH ÁLVAREZ Physician Instructions: Reason For Exam: covid r/o 11/10/20 09:30 Consult to Cardiac Rehabilitation [CONS] Routine Reason For Exam: Cardiac Rehab Evaluation 11/13/20 10:02 Physical Therapy Evaluation and Treat [CONS] Routine Comment: Reason For Exam: debility Date of last referral: 11/13/20 Primary care physician: [employer] Hospitalization Condition: Critical Hospital course: Subjective Date of service: 11/13/20 Principal diagnosis: Symptomatic Bradycardia Interval history: Patient is a 79-year-old male who presents emergency room with complaints of dyspnea on exertion and shortness of breath. Patient states his shortness of breath exertion started 3 days ago. Patient states shortness of breath and pain exertion only when he is walking. Patient states his symptom worse with exertion and better with rest. Patient Patient is seen at bedside. Patient is calm, he denies chest pain, nausea and vomiting. patient also denies fever, cough or chill. Discussed plan of care with the patient nurse at bedside. Patient nurse said he gave patient atropine at bedside but did not improve the heart rate. External pacemaker was placed, however patient did not tolerate the procedure in ED Patient is scheduled for pacemaker placement in the morning by banquet chef. Reviewed lab, MAR and vital signs. ED work-up shows WBC 4.2, hemoglobin 12.3, platelets 114, sodium level 145 Potassium level 4.0, serum glucose 147, creatinine 1.21. Reviewed classroom monitor patient is on complete heart block at rate 20s to 30s Patient is CAlM and not in acute distress even with low heart rate. Chest x-ray done which showed diffuse bilateral pulmonary opacity most likely abdominal bilateral pneumonia/pulmonary edema Patient had PPM yesterday Postprocedure patient doing well per cardilogy "S/p PPM implantation yesterday. Post-procedure CXR with NAF, no pneumothorax. Device interrogation this AM showed normal device function. Currently stable cardiac status. Pt may discharge from cardiology standpoint. Follow up in our [place] office for post-procedure device clinic on 11/29/2020 @ 2:30PM. Follow up in our [place] office with Dr. Zendejas on 12/16/2020 @ 10:00AM. " (1) Bradycardia Current Visit: Yes Status: Acute Plan to address problem: Continue to monitor patient vital signs including heart rate Atropine was given in ED patient still has low heart rate in the 20s to 30s [employer] Drawer In consulted pacemaker placement planned for morning Patient is stable not in acute distress Had PPM today Postprocedure doing well (2) Complete heart block Current Visit: Yes Status: Acute Plan to address problem: Patient on potline monitor has complete heart block He has shortness of breath only with activity No acute distress at rest [employer] Drawer In consult appreciated Had PPM yesterday Postprocedure patient doing well (3) SOB (shortness of breath) Current Visit: Yes Status: Acute Plan to address problem: Echocardiogram result on the chart Ejection fraction is 55% Normal systolic pressures in the chambers Sob improved (4) Essential (primary) hypertension Current Visit: Yes Status: Acute under control (5) Bilateral pneumonia Current Visit: Yes Status: Acute Plan to address problem: cont oral abx Disposition: - TO HOME OR SELFCARE Time spent for discharge: 35 - Discharge Diagnoses (1) Bilateral pneumonia Status: Acute (2) Bradycardia Status: Acute (3) Complete heart block Status: Acute (4) DVT prophylaxis Status: Acute Core Measure Documentation - Palliative Care Palliative Care/ Comfort Measures: Not Applicable - Core Measures Any of the following diagnoses?: none Exam - Constitutional Vitals: Temp Pulse Resp BP Pulse Ox 98.4 F 93 H 20 173/77 97 11/13/20 09:40 11/13/20 10:00 11/13/20 09:40 11/13/20 09:40 11/13/20 09:40 General appearance: Present: no acute distress, well-nourished - EENT Eyes: Present: PERRL ENT: hearing intact, clear oral mucosa - Neck Neck: Present: supple, normal ROM - Respiratory Respiratory effort: normal Respiratory: bilateral: CTA - Cardiovascular Heart rate: 68 Rhythm: regular Heart Sounds: Present: S1 & S2. Absent: rub, click - Extremities Extremities: pulses symmetrical, No edema Peripheral Pulses: within normal limits - Abdominal General gastrointestinal: Present: soft, non-tender, non-distended, normal bowel sounds Male genitourinary: Present: normal - Integumentary Integumentary: Present: clear, warm, dry - Musculoskeletal Musculoskeletal: gait normal, strength equal bilaterally - Psychiatric Psychiatric: appropriate mood/affect, intact judgment & insight - Neurologic Neurologic: CNII-XII intact, moves all extremities Plan Activity: no restrictions Diet: low salt Follow up with: PRIMARY CARE, [Primary Care Provider] - 7 Days TRENTON ZENDEJAS MD [Staff Physician] - 7 Days
== END 2020-11-13 15:30 | disposition home health service (06) | DRG 242 ==
LOC: ED 00:38 → SUATTDRO 00:38 → CC1 02:10 → IMCU 13:26 → 4A 11-12 17:12
PROVIDERS: ADMIT Internal Medicine Geriatric Medicine; ATTEND Internal Medicine
PROC: 4A023N7 Measurement of Cardiac Sampling and Pressure, Left Heart, Percutaneous Approach (ICD-10-PCS; 2020-11-10)
PROC: B2151ZZ Fluoroscopy of Left Heart using Low Osmolar Contrast (ICD-10-PCS; 2020-11-10)
PROC: B2111ZZ Fluoroscopy of Multiple Coronary Arteries using Low Osmolar Contrast (ICD-10-PCS; 2020-11-10)
PROC: 5A1223Z Performance of Cardiac Pacing, Continuous (ICD-10-PCS; 2020-11-10)
PROC: 0JH606Z Insertion of Pacemaker, Dual Chamber into Chest Subcutaneous Tissue and Fascia, Open Approach (ICD-10-PCS; principal; 2020-11-12)
PROC: 02H63JZ Insertion of Pacemaker Lead into Right Atrium, Percutaneous Approach (ICD-10-PCS; 2020-11-12)
PROC: 02HK3JZ Insertion of Pacemaker Lead into Right Ventricle, Percutaneous Approach (ICD-10-PCS; 2020-11-12)
PROC: 4B02XSZ Measurement of Cardiac Pacemaker, External Approach (ICD-10-PCS; 2020-11-13)
DX: I44.2 Atrioventricular block, complete (principal); J18.9 Pneumonia, unspecified organism; I50.33 Acute on chronic diastolic (congestive) heart failure; J96.01 Acute respiratory failure with hypoxia; Z20.822 Contact with and (suspected) exposure to COVID-19; I11.0 Hypertensive heart disease with heart failure; E11.9 Type 2 diabetes mellitus without complications; E78.2 Mixed hyperlipidemia; Z79.899 Other long term (current) drug therapy; Z79.84 Long term (current) use of oral hypoglycemic drugs; Z82.49 Family history of ischemic heart disease and other diseases of the circulatory system; Z83.3 Family history of diabetes mellitus
CPT/HCPCS: 33208; 33210; 36415; 71045; 80048; 80053; 80061; 81001; 82140; 82550; 82553; 82728; 82947; 82962; 83036; 83615; 83880; 84145; 84484; 85025; 85379; 85610; 86140; 87086; 93005; 93306; 93458; 94760; G0378; A9270-GY; C1785; C1892; C1894; C1898; J0456; J0461; J0690; J0696; J1170; J1644; J1940; J2250; J2370; J2704; J3010; J3370; J7030; J7040; J7050; Q9967; U0003